=== PATIENT | male | born 1945 | race Caucasian/White ===

== ENCOUNTER 2016-02-21 09:48 | Emergency (ER) | payer MEDICARE, BC ==
[2016-02-21 10:02] VITALS: BP 145/73
--- NOTE | 2016-02-21 10:20 | UC ---
Throat Pain/Nasal Jose HPI - HPI Summary HPI Summary: complaint of nasal congestio and cough hat started 2 days ago headache feels congested denies sore throat, ear pain, shortness of breath denies fever and chills tried some nasal spray flonase with some relief - History of Current Complaint Chief Complaint: UCGeneralIllness Stated Complaint: SINUS ISSUE Time Seen by Provider: 02/21/16 10:11 Hx Obtained From: Patient Cough: Productive Associated Signs & Symptoms: Positive: Nasal Discharge - Allergies/Home Medications Allergies/Adverse Reactions: Allergies Allergy/AdvReac Type Severity Reaction Status Date / Time Penicillins Allergy Hives Verified 02/21/16 09:54 PMH/Surg Hx/FS Hx/Imm Hx Previously Healthy: Yes Endocrine History Of: Denies: Diabetes, Thyroid Disease Cardiovascular History Of: Denies: Cardiac Disorders, Hypertension Respiratory History Of: Reports: Asthma - child, Bronchitis Denies: COPD GI/ History Of: Denies: Ulcer - Surgical History Surgical History: Yes Surgery Procedure, Year, and Place: arthroscopy both knees last in 2010. Tonsilectomy - Family History Known Family History: Positive: Hypertension - father, Diabetes - father Negative: Cardiac Disease - Social History Occupation: Retired Alcohol Use: Daily Substance Use Type: None Smoking Status (MU): Former Smoker Review of Systems Constitutional: Negative Skin: Negative Eyes: Negative ENT: Nasal Discharge Respiratory: Cough Cardiovascular: Negative Gastrointestinal: Negative Genitourinary: Negative Motor: Negative Neurovascular: Negative Musculoskeletal: Negative Neurological: Negative Psychological: Negative All Other Systems Reviewed And Are Negative: Yes Physical Exam Triage Information Reviewed: Yes Appearance: No Pain Distress, Well-Nourished Vital Signs: Initial Vital Signs Temp 98.2 F 02/21/16 09:56 Pulse 83 02/21/16 09:56 Resp 18 02/21/16 09:56 BP 145/73 02/21/16 09:56 Pulse Ox 100 02/21/16 09:56 Vital Signs Reviewed: Yes Eyes: Positive: Conjunctiva Clear ENT: Positive: Pharynx normal, Nasal congestion, Nasal drainage, TMs normal, Other: - no sinus tenderness Neck: Positive: No Lymphadenopathy Respiratory: Positive: Lungs clear, Normal breath sounds, No respiratory distress Cardiovascular: Positive: RRR, No Murmur, Pulses Normal Abdomen Description: Positive: Nontender, Soft Bowel Sounds: Positive: Present Musculoskeletal: Positive: No Edema Neurological: Positive: Alert Psychological Exam: Normal Skin Exam: Normal Throat Pain/Nasal Course/Dx - Course Course Of Treatment: exam completed. URI no s/s of secondary infection. symptomatic treatment only - Differential Dx/Diagnosis Differential Diagnosis/HQI/PQRI: Pharyngitis, Sinusitis, URI Provider Diagnoses: URI Discharge - Discharge Plan Condition: Stable Disposition: HOME Prescriptions: Pseudoephedrine TAB* [Sudafed TAB*] 60 mg PO BID #20 tab guaiFENesin ER TAB [Mucinex*] 600 mg PO BID #20 tab.er Patient Education Materials: Upper Respiratory Infection (ED) Referrals: Michael Yost MD [Primary Care Provider] - Additional Instructions: VIRAL UPPER RESPIRATORY INFECTION (COMMON COLD) What is Viral Upper Respiratory Infection? Viral upper respiratory infection is the medical term for the common cold. Respiratory infections can be caused by either a virus or bacteria. The common cold is caused by a virus. The virus travels through the air and can be passed easily from one person to another. This is one reason that it is so important to cover your mouth when you cough or sneeze. When you cover your mouth you will get the virus on your hands. If you touch something with that hand the virus is spread to the object you touch. Because of this you should be sure to wash your hands often when you have a cold. Symptoms usually begin 1 to 3 days after the virus takes hold in your body. Other people can catch your cold even before you start to notice symptoms, which is one reason why colds are hard to prevent. Symptoms May Include: Scratchiness or tickling in the throat Sore throat Stuffy nose Generalized aches and pains Coughing or sneezing Feeling tired Treatment Recommendations: Drink plenty of clear, nonalcoholic fluids, such as water, sports drinks, or juice. For example, an average adult should drink 8 ounces every hour, a child 6 to 10 years should drink 4 ounces every hour, and a child under 6 should drink 1 to 2 ounces every hour. You should rest as much as possible. You can use a cool-mist humidifier or steam vaporizer to increase air moisture. This will make it easier to breathe. Remember that a steam vaporizer may contain hot water that can cause severe sandoval. If you smoke, stopsmoke irritates bronchial passages. If you are coughing up mucus, and milk seems to make the sputum thicker, do not eat or drink foods that contain milk. You want to try to cough up mucous whenever possible so that you dont get pneumonia. Do not use cough suppressant medicine without your healthcare providers [place]. You should take all medications prescribed until completely gone, or as instructed. Non-prescription medicine such as acetaminophen (Tylenol) or ibuprofen (Motrin , Advil) may help your aches, pains, and fever. Do not take someone else's medicine, or penicillin tablets that you may have saved. You could cause a more serious problem than you already have. Don't bundle up to sweat out a fever. It only makes your fever worse. If you feel cold, cover up; if you feel warm, dress lightly. Dont use non-prescription medicine with antihistamines for your cold symptoms. They may make your mouth and nose too dry, and can make the mucous you are trying to cough up too thick to cough up easily. Antihistamines are more helpful for hay fever-like symptoms.
== END 2016-02-21 10:47 | disposition home or self-care (01) ==
LOC: UCEAST 09:48
DX: J06.9 Acute upper respiratory infection, unspecified (principal); Z87.891 Personal history of nicotine dependence
CPT/HCPCS: 99212; G0463

== ENCOUNTER 2017-08-27 15:03 | Day surgery (SDC) | payer MEDICARE, BC ==
[2017-08-27] MEDS ORDERED: Ondansetron INJ* 2 MG/ML VIAL ONE (17:50)
[2017-08-27] MEDS ORDERED: Propofol* 10 MG/ML 20 ML BTL IV PUSH ONE (17:50)
[2017-08-27] MEDS ORDERED: Midazolam* 1 MG/ML 5 ML VIAL (5 MG) ONE (17:50)
[2017-08-27] MEDS ORDERED: Lidocaine 2% PF * 5 ML VIAL ONE (17:50)
[2017-08-27] MEDS ORDERED: fentaNYL* 50 MCG/ML 2 ML VIAL (100 MCG VIAL) ONE ×2 (17:50→18:27)
[2017-08-27] MEDS ORDERED: Ketorolac INJ* 30 MG/ML 1 ML VIAL ONE (17:51)
[2017-08-27] MEDS ORDERED: Famotidine IV* 10 MG/ML 2 ML (20 mg) ONE (17:51)
[2017-08-27] MEDS ORDERED: EPHEDrine (Pressors)* 50 MG/ML VIAL ONE (18:08)
[2017-08-27] MEDS ORDERED: Bupivacaine 0.5% PF 10 ML VIAL INJ ONE (18:29)
[2017-08-27] MEDS ORDERED: fentaNYL* 50 MCG/ML 2 ML VIAL (100 MCG VIAL) IV PRN (18:54)
[2017-08-27] MEDS ORDERED: Naloxone* 0.4 MG/ML 1 ML VIAL IV PRN (18:54)
[2017-08-27] MEDS ORDERED: Ondansetron INJ* 2 MG/ML VIAL IV PRN (18:54)
[2017-08-27] MEDS ORDERED: oxyCODONE/Acetamin 5/325 MG* TAB PO PRN (18:54)
[2017-08-27 19:56] VITALS: BP 175/92
--- NOTE | 2017-09-03 12:59 | OP ---
DATE OF OPERATION: 08/27/17 [facility] DATE OF : 49 SURGEON: Lex Chery MD [employer] COACH: GRETA Peng ANESTHESIA: General. PRE-OP DIAGNOSIS: Right palm persistently draining abscess despite prior incision and drainage, soaks and antibiotics, possible retained foreign body. POST-OP DIAGNOSES: 1. Right palm abscess. 2. Retained wood fragment, right palm. OPERATIVE PROCEDURE: 1. Incision and drainage of right palm abscess. 2. Removal of infected foreign body, right palm. INDICATIONS: Richard is the patient who I saw, who completed a round of oral antibiotics, and then developed a localized area where that was still infected in the right palm. I had performed an I and D and he had had cultures sent. He was placed on Bactrim and then later Flagyl. He continued to have drainage from the wound and he actually came back and saw my partner in the office earlier this week. She changed him to ciprofloxacin. He had had some fevers and she was concerned about a superimposed sinusitis. Two days later, he came back to my office and still had some drainage from that area. It was very tender, so I told him we need to go to the operating room that night and really open things up and clean things out and see why it was still persistently draining and if there was any retained foreign material that needed to come out or what was the cause of the persistent infection as it should have resolved with appropriate soaks and antibiotics previously. He understands the risks of persistent infection, neurovascular injury, stiffness amongst others, and he wanted to proceed. ESTIMATED BLOOD LOSS: 2 mL. COMPLICATIONS: None. FINDINGS: See above and below. DESCRIPTION OF PROCEDURE: Richard was seen in the preoperative holding area. The correct side, site, and procedure were identified. We came back to the operating room where anesthesia was induced. The arm was prepped and draped in the usual fashion with Betadine and a time-out was performed. I began my making a Burner-type incision utilizing his prior I and D site and extending it proximally and distally. Once I made that incision and reflected the flap radially, I was able to see a retained piece of wood in the bed of the wound. I removed this; it had some purulence around it. This was sent off as a specimen for culture. The wound was then copiously irrigated using cysto tubing. I then examined the wound under loupe magnification. I could not find any more foreign material, nothing looked like it was deep, nothing looked it had penetrated the tendon sheath, and so I left this closed and undisturbed. He had no signs of flexor tenosynovitis preoperatively. Again, the wound was irrigated out. The skin was closed with just a couple of 4-0 nylon sutures. Tourniquet was deflated. The finger pinked up immediately. Soft dressings were applied and he was taken to the recovery room in stable condition. [id number]/CPS #: [id number] MTDD
== END 2017-08-27 20:06 | disposition home or self-care (01) ==
LOC: OR 15:03
PROVIDERS: ATTEND Orthopaedic Surgery Hand Surgery
DX: L02.511 Cutaneous abscess of right hand (principal); M79.5 Residual foreign body in soft tissue; J45.909 Unspecified asthma, uncomplicated; E78.5 Hyperlipidemia, unspecified; M19.90 Unspecified osteoarthritis, unspecified site; F32.9 Major depressive disorder, single episode, unspecified; Z87.891 Personal history of nicotine dependence; F10.21 Alcohol dependence, in remission
CPT/HCPCS: 87070; 87073; 87205; 88300; J1885; J2250; J2405; J2704; J3010

== ENCOUNTER 2019-03-24 14:04 | Emergency (ER) | payer MEDICARE, BC ==
--- OUTSIDE RECORDS SUMMARY | 2019-03-24 14:20 | XMS REPORT | Continuity of Care Document ---
:1945 External Reference #:[id number] Author Name Simran De Paz PA-C Address [address] [place] [id number] Care Team Providers Name Role Phone Deonna Hernandez MD - Family Medicine Care Team Information [facility] Attendant Problems Active Problems Provider Date Acute sinusitis Simran De Paz PA-C Onset: 12/22/2017 Polyp of nasal sinus Simran De Paz PA-C Onset: 12/22/2017 Social History Type Date Description Comments Sex Unknown Tobacco Use Start: Unknown Never Smoked Cigarettes Tobacco Use Start: Unknown Never Smoked Cigars Tobacco Use Start: Unknown Never Smoked A Pipe Smoking Status Reviewed: 03/08/19 Never Smoked A Pipe Smokeless Tobacco Never Used Smokeless Tobacco ETOH Use Currently occasionally consumes alcohol Tobacco Use Start: Unknown Patient has never smoked Allergies, Adverse Reactions, Alerts Active Allergies Reaction Severity Comments Date Penicillin 11/25/2007 Avelox GI upset,diarrhea 10/29/2012 Medications Active Medications SIG Qnty Indications Ordering Provider Date Doxycycline Hyclate take 1 pill 2 20tabs J32.8 Wesley Ruvalcaba 03/09/2019 times a dya for MD Chalo 100mg Tablets 10 days Prednisone 4 tabs po every 38tabs J32.8 Wesley Ruvalcaba 03/09/2019 10mg Tablets day x5 d, then 3 MD Chalo tabs po every day x3 d, then 2 tabs po every day x3d, then 1 tab po qd x3d, then off Fluticasone 2 sprays each 16gm Wesley Ruvalcaba 07/30/2018 Propionate nostril daily MD Chalo 50mcg/Act Suspension Lovastatin Omid Yost 20mg Tablets M.D. Immunizations CPT Code Status Date Vaccine Lot # [id number] Given Unknown Influenza Virus Vaccine, 3 Years Of Age And Above, Intramuscular Vital Signs Date Vital Result Comment 03/09/2019 11:01am Body Temperature 97.3 F Weight 203.00 lb Weight 92.081 kg Height 72.01 inches 6'0.01" Height in cm's 182.9 cm BMI (Body Mass Index) 27.5 kg/m2 11/03/2018 9:24am Weight 203.00 lb Weight 92.081 kg Height 72.01 inches 6'0.01" Height in cm's 182.9 cm BMI (Body Mass Index) 27.5 kg/m2 Results Description No Information Available Procedures Date Code Description Status 11/03/2018 85731 Removal Wax Impaction Completed Medical Devices Description No Information Available Encounters Type Date Location Provider Dx Diagnosis Office Visit 03/09/2019 Sen De Paz J33.1 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[facility] degeneration J30.9 Allergic rhinitis, unspecified J32.8 Other chronic sinusitis [facility] Ruvalc[facility] J33.1 Polypoid sinus 9:30a 02/17/07 MD Chalo degeneration H61.23 Impacted cerumen, bilateral J30.9 Allergic rhinitis, unspecified Assessments Date Code Description Provider 03/09/2019 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 Simran De Paz PA-C 03/09/2019 J30.9 Allergic rhinitis, unspecified Simran De Paz PA-C 03/09/2019 J32.8 Other chronic sinusitis Simran De Paz PA-C 11/03/2018 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 Wesley Isabel MD 11/03/2018 H61.23 Impacted cerumen, bilateral Wesley Isabel MD 11/03/2018 J30.9 Allergic rhinitis, unspecified Wesley Isabel MD Plan of Treatment 03/09/2019 - BISHNU LeeCJ33.1 Polypoid sinus qjhejvnsemqiW02.9 Allergic rhinitis, hwmiiicpnpvH03.8 Other chronic sinusitisNew Medication:Doxycycline Hyclate 100 mg - take 1 pill 2 times a dya for 10 daysPrednisone 10 mg - 4 tabs po every day x5 d, then 3 tabs po every day x3 d, then 2 tabs po every dayx3d, then 1 tab po qd x3d, then off Functional Status Description No Information Available Mental Status Description No Information Available Referrals Description No Information Available
[2019-03-24] MEDS ORDERED: NS 0.9% 1000 ML** 1,000 ML IV ONE (15:59)
--- NOTE | 2019-03-24 16:00 | ED ---
Respiratory - HPI Summary HPI Summary: 73 year old M presenting to [facility] accompanied by female says he was sent here after being diagnosed with bilateral PNA at [facility] with a CXR. Pt previously had a sinus infection for which had completed an abx treatment for and developed a productive cough 2 days after the infection resolved for which he went to [facility] for. Pt denies current SOB. No PMHx of HTN, [place], diabetes, swelling in legs, or clots in legs. PMHx of asthma in youth. Pt used prednisone and doxycycline for the sinus infection and is allergic to penicillin. The patient rates the pain 0/10 in severity. Symptoms aggravated by nothing. Symptoms alleviated by nothing. - History of Current Complaint Chief Complaint: EDShortnessOfBreath Stated Complaint: SOB PER PT Time Seen by Provider: 03/24/19 15:43 Hx Obtained From: Patient Onset/Duration: Lasting Hours Pain Intensity: 0 Character: Cough (Productive) Aggravating Factor(s): Nothing Alleviating Factor(s): Nothing Associated Signs and Symptoms: Negative - negative - SOB - Allergy/Home Medications Allergies/Adverse Reactions: Allergies Allergy/AdvReac Type Severity Reaction Status Date / Time Penicillins Allergy Difficulty Verified 03/24/19 14:13 Breathing/Wheezing PMH/Surg Hx/FS Hx/Imm Hx Endocrine/Hematology History: Denies: Hx Diabetes, Hx Thyroid Disease Cardiovascular History: Denies: Hx Hypertension Respiratory History: Reports: Hx Asthma - child, Other Respiratory Problems/ Disorders - pneumonia, see above Denies: Hx Chronic Obstructive Pulmonary Disease (COPD) GI History: Denies: Hx Ulcer - Surgical History Surgery Procedure, Year, and Place: arthroscopy both knees last in 2010. Tonsilectomy Infectious Disease History: No Infectious Disease History: Reports: Hx Shingles - as a young man Denies: Hx Clostridium Difficile, Hx Hepatitis, Hx Human Immunodeficiency Virus (HIV), Hx of Known/Suspected MRSA, Hx Tuberculosis, Traveled Outside the [place] in Last 30 Days - Family History Known Family History: Positive: Hypertension - father, Diabetes - father Negative: Cardiac Disease - Social History Alcohol Use: Rare Substance Use Type: Reports: None Smoking Status (MU): Never Smoked Tobacco Review of Systems Negative: Fever Positive: Cough - productive. Negative: Shortness Of Breath All Other Systems Reviewed And Are Negative: Yes Physical Exam - Summary Physical Exam Summary: Constitutional: Well-developed, Well-nourished, Alert. (-) Distressed Skin: Warm, Dry HENT: Normocephalic; Atraumatic Eyes: Conjunctiva normal Neck: Musculoskeletal ROM normal neck. (-) JVD, (-) Stridor, (-) Tracheal deviation Cardio: Rhythm regular, rate normal, Heart sounds normal; Intact distal pulses; The pedal pulses are 2+ and symmetric. Radial pulses are 2+ and symmetric. (-) Murmur Pulmonary/Chest wall: Effort normal. (-) Respiratory distress, (-) Wheezes, (-) Rales Abd: Soft, (-) tenderness, (-) Distension, (-) Guarding, (-) Rebound Musculoskeletal: (-) Edema Lymph: (-) Cervical adenopathy Neuro: Alert, Oriented x3 Psych: Mood and affect Normal Triage Information Reviewed: Yes Vital Signs On Initial Exam: Initial Vitals Temp Pulse Resp BP Pulse Ox 97.1 F 71 19 177/93 98 03/24/19 14:09 03/24/19 14:09 03/24/19 14:09 03/24/19 14:09 03/24/19 14:09 Vital Signs Reviewed: Yes Procedures - Sedation Patient Received Moderate/Deep Sedation with Procedure: No Diagnostics - Vital Signs Vital Signs Temp Pulse Resp BP Pulse Ox 03/24/19 14:09 97.1 F 71 19 177/93 98 - Laboratory Result Diagrams: 03/24/19 16:11 03/24/19 16:11 Lab Statement: Any lab studies that have been ordered have been reviewed, and results considered in the medical decision making process. - Radiology CXR Radiology Interpretation Completed By: Radiologist Summary of Radiographic Findings: IMPRESSION: COARSE INTERSTITIAL OPACIFICATION IN THE PERIPHERY OF THE LUNGS SUGGESTIVE OF. PULMONARY FIBROTIC LUNG DISEASE. NO CONSOLIDATION. has reviewed this report. - EKG 1702 Cardiac Rate: NL EKG Rhythm: Sinus Rhythm Summary of EKG Findings: EKG at 1702 reveals sinus rhythm at a rate of 72 bpm. No ischemic changes. has reviewed and interpreted this EKG. Disposition - Course Course Of Treatment: 73 year old M presenting to [facility] says he was sent here after being diagnosed with bilateral PNA at [facility] with a CXR. Pt previously had a sinus infection for which had completed an abx treatment for and developed a productive cough 2 days after the infection resolved for which he went to [facility] for. Physical exam findings: nml. Bloodwork results with no significant abnormalities except for L RBC, L Hgb, L Hct, H MCV, H MCH, H Absolute Monos. EKG at 1702 reveals sinus rhythm at a rate of 72 bpm. No ischemic changes. CXR shows COARSE INTERSTITIAL OPACIFICATION IN THE PERIPHERY OF THE LUNGS SUGGESTIVE OF PULMONARY FIBROTIC LUNG DISEASE. NO CONSOLIDATION, per radiologist. In the ED course, the patient was given 500 mg in 250 ml IVPB Azithromycin, Ns, Ns 0.9% 50 ml Ceftriaxone. Patient will be discharged home and was told to follow up with PCP in 2-3 days. Patient was instructed to return to Emergency Department for new or worsening symptoms. Patient understands and is agreeable to this plan. - Diagnoses Provider Diagnoses: Bronchitis Discharge ED - Sign-Out/Discharge Documenting (check all that apply): Patient Departure - discharge - Discharge Plan Condition: Stable Disposition: HOME Patient Education Materials: Acute Bronchitis (ED) Referrals: Deonna Hernandez MD [Primary Care Provider] - 2 Days Additional Instructions: Follow up with your primary care provider in 2-3 days. Return to the Emergency Department for new or worsening symptoms. - Billing Disposition and Condition Condition: STABLE Disposition: Home - Attestation Statements Document Initiated by Theodora: Yes Documenting Scribe: Gerson Garcia Provider For Whom Theodora is Documenting (Include Credential): Antoine Lockwood DO Scribe Attestation: Gerson Shaw scribed for Antoine Lockwood DO on 03/24/19 at 1903. Scribe Documentation Reviewed: Yes Provider Attestation: The documentation as recorded by the Gerson chen accurately reflects the service I personally performed and the decisions made by , Antoine Lockwood DO Status of Scribe Document: Viewed
[2019-03-24] MEDS ORDERED: Azithromycin 500 mg/250 ml NS 500 MG/250 ML BAG IVPB ONE (16:05)
[2019-03-24] MEDS ORDERED: cefTRIAXone(*) 1 GM in NS 0.9% 50 ML* 50 ML IVPB ONE (16:05)
[2019-03-24 16:34] LABS: ABS Basophils 0.1 10^3/ul (0-0.2); ABS Eosinophils 0.3 10^3/ul (0-0.6); ABS Lymphocytes 1.2 10^3/ul (1.0-4.8); ABS Monocytes 1.1 10^3/ul (0-0.8); ABS Neutrophils 5.9 10^3/ul (1.5-7.7); Eosinophil % 2.9 %; Hematocrit 35 % (42-52); Hemoglobin 12.1 g/dL (14.0-18.0); Lymphocyte % 14.4 %; Mean Corpuscular HGB Conc 35 g/dL (31-36); Mean Corpuscular Hemoglobin 37 pg (27-31); Mean Corpuscular Volume 105 fL (80-94); Mean Platelet Volume 9.8 fL (7.4-10.4); Nucleated Red Blood Cells % 0.1; Platelet Count 240 10^3/uL (150-450); Red Blood Count 3.31 10^6 /uL (4.18-5.48); Red Cell Distribution Width 13 % (10-15); White Blood Count 8.6 10^3/uL (3.5-10.8)
[2019-03-24 17:10] LABS: Albumin 4.1 g/dL (3.2-5.2); Albumin/Globulin Ratio 1.3 (1-3); BUN/Creatinine Ratio 15.8 (8-20); Calcium 9.2 mg/dL (8.6-10.3); EGFR African American 94.6 (>60); EGFR Non-African American 78.2 (>60); Globulin 3.1 g/dL (2-4); Potassium 4.3 mmol/L (3.5-5.0); Total Bilirubin 0.9 mg/dL (0.2-1.0); Total Protein 7.2 g/dL (6.4-8.9)
[2019-03-24 17:20] LABS: Troponin I 0.01 ng/mL (<0.03)
[2019-03-24 18:58] VITALS: BP 152/92
== END 2019-03-24 18:57 | disposition home or self-care (01) ==
LOC: ED 14:04
DX: J40 Bronchitis, not specified as acute or chronic (principal); Z88.0 Allergy status to penicillin
CPT/HCPCS: 36415; 71045; 80053; 84484; 85025; 85379; 93005; 96374; 96375; 99283; J0456; J0696

== ENCOUNTER 2019-12-31 11:30 | Observation (INO) ==
[~2019-12-31 11:30] MED LIST: Buffered Lidocaine 1% SYRIN 1 ml INTRADERM ONE; Famotidine IV 10 MG/ML 2 ml VIAL (20 mg) IV ONE; Lactated Ringers 1000 ml BAG 1,000 ML IV SCH; Sodium Citrate/Citric Acid LIQ 15 ML UDC PO ONE
[2019-12-31] MEDS ORDERED: Dexamethasone IV 4 MG/ML VIAL 1 ml VIAL ONE ×2 (11:52→13:24)
[2019-12-31] MEDS ORDERED: Propofol 10 MG/ML 20 ML BTL ONE (11:52)
[2019-12-31] MEDS ORDERED: Ondansetron 4 mg VIAL 2 MG/ML 2 ml VIAL ONE (11:52)
[2019-12-31] MEDS ORDERED: Sodium Citrate/Citric Acid LIQ 15 ML UDC ONE (12:47)
[2019-12-31] MEDS ORDERED: Buffered Lidocaine 1% SYRIN 1 ml INTRADERM ONE (12:48)
[2019-12-31] MEDS ORDERED: Clindamycin 900 MG/D5W BAG 900 MG/50 ML BAG IVPB ONE (12:48)
[2019-12-31] MEDS ORDERED: Famotidine IV 10 MG/ML 2 ml VIAL (20 mg) ONE (12:49)
[2019-12-31] MEDS ORDERED: Midazolam 5 mg/5 ml VIAL 1 mg/ml 5 ml VIAL (5 mg) ONE (13:06)
[2019-12-31] MEDS ORDERED: Lidocaine 1% MPF 5 ML VIAL ONE (13:28)
[2019-12-31] MEDS ORDERED: ROPIVACAINE 5 MG/ML 30 ML BTL (0.5%) ONE (13:28)
[2019-12-31] MEDS ORDERED: Phenylephrine 40 mcg/mL 10mL (400mcg) SYRINGE ONE (13:43)
[2019-12-31] MEDS ORDERED: Bupivacaine 0.5% SDV PF 30ML VIAL ONE (14:13)
[2019-12-31] MEDS ORDERED: Lidocaine 2% PF 5 ML VIAL ONE (14:40)
[2019-12-31] MEDS ORDERED: Phenylephrine IV 10 MG/ML 1 ml VIAL ONE (15:12)
[2019-12-31] MEDS ORDERED: Morphine 2 MG/ML SYRINGE IV PRN (15:15)
[2019-12-31] MEDS ORDERED: Ondansetron ODT 4 mg TAB 4 MG TAB PO PRN (15:15)
[2019-12-31] MEDS ORDERED: diPHENhydraMINE IV 50 MG/ML 1 ml VIAL (BENADRYL) IV PRN (15:15)
[2019-12-31] MEDS ORDERED: Lactulose 30 ml UDC PO PRN (15:15)
[2019-12-31] MEDS ORDERED: Ondansetron 4 mg VIAL 2 MG/ML 2 ml VIAL IV PRN ×2 (15:15→15:20)
[2019-12-31] MEDS ORDERED: Magnesium Hydroxide LIQ 30 ML UDC PO PRN (15:15)
[2019-12-31] MEDS ORDERED: diPHENhydraMINE 25 mg TAB PO PRN (15:15)
[2019-12-31] MEDS ORDERED: fentaNYL 100 mcg/2 ml 50 MCG/ML VIAL IV PRN (15:20)
[2019-12-31] MEDS ORDERED: HYDROmorphone 1 MG/1 ML SYRINGE IV PRN (15:20)
[2019-12-31] MEDS ORDERED: Naloxone 0.4 mg VIAL 0.4 mg/ml 1 ml VIAL IV PRN (15:20)
[2019-12-31] MEDS ORDERED: Fluticasone NASAL SPRAY 50MCG 16 gm SPRAY BTL INTRANASAL PRN (15:21)
[2019-12-31] MEDS ORDERED: Albuterol HFA INHALER 8 gm MDI INH PRN (19:52)
[2019-12-31] MEDS: Lactated Ringers 1000 ml BAG 1,000 ML IV SCH (19:57)
[2019-12-31] MEDS: Clindamycin 600 MG/D5W BAG 600 MG/50 ML BAG IV SCH (22:41)
[2019-12-31] MEDS: Magnesium Hydroxide LIQ 30 ML UDC PO SCH (22:41)
[2020-01-01 05:47] LABS: Hematocrit 28 % (42-52); Hemoglobin 9.9 g/dL (14.0-18.0); Mean Platelet Volume 10.2 fL (7.4-10.4); Platelet Count 217 10^3/uL (150-450)
[2020-01-01] MEDS: Clindamycin 600 MG/D5W BAG 600 MG/50 ML BAG IV SCH ×2 (06:03→14:18)
[2020-01-01 06:04] LABS: Calcium 8.4 mg/dL (8.6-10.3); EGFR Non-African American 85.1 (>60); Potassium 4.6 mmol/L (3.5-5.0)
[2020-01-01] MEDS: Lactated Ringers 1000 ml BAG 1,000 ML IV SCH (06:06)
[2020-01-01] MEDS: oxyCODONE/Acetamin 5/325 mg TAB PO PRN ×2 (06:07→15:22)
[2020-01-01] MEDS: Magnesium Hydroxide LIQ 30 ML UDC PO SCH (07:46)
[2020-01-01] MEDS ORDERED: Vitamin THERAPEUTIC TAB PO SCH (09:00)
[2020-01-01 12:33] VITALS: BP 115/57
== END 2020-01-01 15:31 | disposition home or self-care (01) ==
LOC: INTOOBSV 12:27 → AA 12:27 → SSU 15:15
PROVIDERS: ADMIT Orthopaedic Surgery Adult Reconstructive Orthopaedic Surgery; ATTEND Orthopaedic Surgery Adult Reconstructive Orthopaedic Surgery

== ENCOUNTER 2020-02-24 10:11 | Inpatient (IN) ==
[2020-02-24 12:45] LABS: ABS Lymphocytes 0.9 10^3/ul (1.0-4.8); ABS Neutrophils 6.2 10^3/ul (1.5-7.7); Eosinophil % 0.3 %; Hematocrit 23 % (42-52); Hemoglobin 7.5 g/dL (14.0-18.0); Lymphocyte % 10.7 %; Mean Corpuscular HGB Conc 33 g/dL (31-36); Mean Corpuscular Hemoglobin 29 pg (27-31); Mean Corpuscular Volume 89 fL (80-94); Mean Platelet Volume 7.4 fL (7.4-10.4); Nucleated Red Blood Cells % 0.1; Platelet Count 371 10^3/uL (150-450); Red Cell Distribution Width 24 % (10-15); White Blood Count 8.1 10^3/uL (3.5-10.8)
[2020-02-24] MEDS ORDERED: Vancomycin 1,500 MG in NS 0.9% 250 ml 250 ML IVPB ONE (12:47)
[2020-02-24 12:55] LABS: Activated Partial Thrombo Time 35.7 seconds (26.0-38.0); INR 1.31 (0.82-1.09)
[2020-02-24 12:56] LABS: Albumin 3.4 g/dL (3.2-5.2); BUN/Creatinine Ratio 18.4 (8-20); Calcium 8.7 mg/dL (8.6-10.3); EGFR Non-African American 100.8 (>60); Globulin 4.4 g/dL (2-4); Potassium 4.3 mmol/L (3.5-5.0); Total Protein 7.8 g/dL (6.4-8.9)
[2020-02-24 12:57] LABS: Albumin/Globulin Ratio 0.8 (1-3); C Reactive Protein 128.14 mg/L (<8.01); Total Bilirubin 0.5 mg/dL (0.2-1.0)
[2020-02-24 12:58] LABS: Troponin I 0.01 ng/mL (<0.03)
[2020-02-24] MEDS ORDERED: NS 0.9% 250 ml 250 ML ONE (13:18)
[2020-02-24] MEDS ORDERED: NS 0.9% w/ 40 Meq KCL 1000 ML 1,000 ML IV SCH (14:00)
[2020-02-24] MEDS ORDERED: Ondansetron 4 mg VIAL 2 MG/ML 2 ml VIAL IV PRN (14:13)
[2020-02-24] MEDS ORDERED: Vancomycin per Pharmacy 1 EA NOTE FOLLOW UP SCH (15:00)
[2020-02-24] MEDS ORDERED: Albuterol HFA INHALER 8 gm MDI INH PRN (16:38)
[2020-02-24] MEDS: NS 0.9% 1000 ml BAG 1,000 ML IV SCH (17:22)
[2020-02-24 17:39] LABS: Urine Appearance Cloudy; Urine Bilirubin Negative (Negative); Urine Blood Negative (Negative); Urine Color Amber; Urine Glucose Negative (Negative); Urine Ketones Negative (Negative); Urine Nitrite Negative (Negative); Urine Protein 1+(30 mg/dL) (Negative); Urine Specific Gravity 1.026 (1.010-1.030); Urine Urobilinogen Negative (Negative)
[2020-02-24 17:51] LABS: Urine Bacteria Absent (Absent); Urine Red Blood Cell 1+(3-5/hpf) (Absent); Urine Squamous Epithelial Cell Present (Absent); Urine White Blood Cell 3+(>20/hpf) (Absent)
[2020-02-24] MEDS: Latanoprost 0.005% 2.5 ml BTL RIGHT EYE SCH (21:01)
[2020-02-24] MEDS: Vancomycin 1000 MG in NS 0.9% 250 ML IVPB SCH (22:29)
[2020-02-25] MEDS: Vancomycin 1000 MG in NS 0.9% 250 ML IVPB SCH ×3 (05:21→21:42)
[2020-02-25] MEDS: NS 0.9% 1000 ml BAG 1,000 ML IV SCH ×2 (05:21→12:57)
[2020-02-25 06:24] LABS: ABS Basophils 0.1 10^3/ul (0-0.2); ABS Eosinophils 0.1 10^3/ul (0-0.6); ABS Lymphocytes 1.1 10^3/ul (1.0-4.8); ABS Monocytes 0.8 10^3/ul (0-0.8); ABS Neutrophils 4.1 10^3/ul (1.5-7.7); Eosinophil % 1.6 %; Hematocrit 21 % (42-52); Hemoglobin 6.8 g/dL (14.0-18.0); Lymphocyte % 17.4 %; Mean Corpuscular HGB Conc 33 g/dL (31-36); Mean Corpuscular Hemoglobin 29 pg (27-31); Mean Corpuscular Volume 88 fL (80-94); Nucleated Red Blood Cells % 0.1; Platelet Count 358 10^3/uL (150-450); Red Blood Count 2.37 10^6 /uL (4.18-5.48); Red Cell Distribution Width 24 % (10-15); White Blood Count 6.1 10^3/uL (3.5-10.8)
[2020-02-25 06:39] LABS: BUN/Creatinine Ratio 15.2 (8-20); C Reactive Protein 118.63 mg/L (<8.01); Calcium 8.5 mg/dL (8.6-10.3); EGFR African American 143.6 (>60); EGFR Non-African American 118.6 (>60); Potassium 3.8 mmol/L (3.5-5.0)
[2020-02-25] MEDS: Pantoprazole VIAL 40 MG VIAL IV SCH ×2 (08:03→20:39)
[2020-02-25 15:05] LABS: ABS Eosinophils 0.1 10^3/ul (0-0.6); ABS Lymphocytes 1.4 10^3/ul (1.0-4.8); ABS Monocytes 0.9 10^3/ul (0-0.8); ABS Neutrophils 3.8 10^3/ul (1.5-7.7); Eosinophil % 1.4 %; Hematocrit 25 % (42-52); Hemoglobin 8.3 g/dL (14.0-18.0); Mean Corpuscular HGB Conc 33 g/dL (31-36); Mean Corpuscular Hemoglobin 29 pg (27-31); Mean Corpuscular Volume 89 fL (80-94); Mean Platelet Volume 7.9 fL (7.4-10.4); Nucleated Red Blood Cells % 0.1; Platelet Count 380 10^3/uL (150-450); Red Blood Count 2.87 10^6 /uL (4.18-5.48); Red Cell Distribution Width 23 % (10-15); White Blood Count 6.3 10^3/uL (3.5-10.8)
[2020-02-25] MEDS ORDERED: ROPIVACAINE 5 MG/ML 30 ML BTL (0.5%) ONE (15:24)
[2020-02-25] MEDS ORDERED: Bacitracin INJECTION 50,000 UNITS ONE (15:24)
[2020-02-25 15:59] LABS: EGFR African American 148.7 (>60); EGFR Non-African American 122.9 (>60)
[2020-02-25] MEDS ORDERED: Naloxone 0.4 mg VIAL 0.4 mg/ml 1 ml VIAL IV PRN (17:16)
[2020-02-25] MEDS ORDERED: fentaNYL 100 mcg/2 ml 50 MCG/ML VIAL IV PRN (17:16)
[2020-02-25] MEDS ORDERED: DiMENhydriNATE IV 50 mg/ml 1 ml VIAL IV PUSH PRN (17:16)
[2020-02-25] MEDS: Latanoprost 0.005% 2.5 ml BTL RIGHT EYE SCH (20:40)
[2020-02-26] MEDS: NS 0.9% 1000 ml BAG 1,000 ML IV SCH ×2 (04:01→17:59)
[2020-02-26] MEDS ORDERED: Vancomycin Trough Check NOTE FOLLOW UP ONE (05:30)
[2020-02-26 06:30] LABS: ABS Basophils 0.1 10^3/ul (0-0.2); ABS Eosinophils 0.1 10^3/ul (0-0.6); ABS Monocytes 0.8 10^3/ul (0-0.8); ABS Neutrophils 5.1 10^3/ul (1.5-7.7); Eosinophil % 2.1 %; Hematocrit 23 % (42-52); Hemoglobin 7.2 g/dL (14.0-18.0); Lymphocyte % 13.7 %; Mean Corpuscular HGB Conc 32 g/dL (31-36); Mean Corpuscular Hemoglobin 29 pg (27-31); Mean Corpuscular Volume 90 fL (80-94); Mean Platelet Volume 7.9 fL (7.4-10.4); Platelet Count 327 10^3/uL (150-450); Red Cell Distribution Width 23 % (10-15)
[2020-02-26 06:39] LABS: BUN/Creatinine Ratio 12.7 (8-20); Calcium 8.5 mg/dL (8.6-10.3); EGFR Non-African American 109.1 (>60); Potassium 3.8 mmol/L (3.5-5.0)
[2020-02-26] MEDS: Vancomycin 1000 MG in NS 0.9% 250 ML IVPB SCH ×3 (07:16→22:30)
[2020-02-26] MEDS: Pantoprazole VIAL 40 MG VIAL IV SCH ×2 (08:30→22:04)
[2020-02-26 15:02] LABS: Hematocrit 21 % (42-52); Hemoglobin 6.8 g/dL (14.0-18.0); Mean Corpuscular HGB Conc 33 g/dL (31-36); Mean Corpuscular Hemoglobin 29 pg (27-31); Mean Corpuscular Volume 88 fL (80-94); Mean Platelet Volume 7.5 fL (7.4-10.4); Platelet Count 318 10^3/uL (150-450); Red Blood Count 2.34 10^6 /uL (4.18-5.48); Red Cell Distribution Width 23 % (10-15); White Blood Count 7.9 10^3/uL (3.5-10.8)
[2020-02-26] MEDS: Latanoprost 0.005% 2.5 ml BTL RIGHT EYE SCH (21:22)
[2020-02-27 03:36] LABS: Hematocrit 24 % (42-52)
[2020-02-27 03:55] LABS: BUN/Creatinine Ratio 14.3 (8-20); Calcium 8.3 mg/dL (8.6-10.3); EGFR African American 151.5 (>60); EGFR Non-African American 125.2 (>60); Potassium 3.8 mmol/L (3.5-5.0)
[2020-02-27] MEDS: Vancomycin 1000 MG in NS 0.9% 250 ML IVPB SCH ×3 (05:56→20:38)
[2020-02-27 08:53] LABS: ABS Basophils 0.1 10^3/ul (0-0.2); ABS Eosinophils 0.1 10^3/ul (0-0.6); ABS Monocytes 1.1 10^3/ul (0-0.8); ABS Neutrophils 6.5 10^3/ul (1.5-7.7); Eosinophil % 1.5 %; Hematocrit 25 % (42-52); Hemoglobin 8.4 g/dL (14.0-18.0); Lymphocyte % 11.9 %; Mean Corpuscular HGB Conc 33 g/dL (31-36); Mean Corpuscular Hemoglobin 29 pg (27-31); Mean Corpuscular Volume 87 fL (80-94); Mean Platelet Volume 7.6 fL (7.4-10.4); Platelet Count 301 10^3/uL (150-450); Red Blood Count 2.89 10^6 /uL (4.18-5.48); Red Cell Distribution Width 20 % (10-15); White Blood Count 8.8 10^3/uL (3.5-10.8)
[2020-02-27] MEDS: Pantoprazole VIAL 40 MG VIAL IV SCH ×2 (11:01→20:38)
[2020-02-27] MEDS: NS 0.9% 1000 ml BAG 1,000 ML IV SCH (13:49)
[2020-02-27] MEDS: Latanoprost 0.005% 2.5 ml BTL RIGHT EYE SCH (20:39)
[2020-02-28] MEDS ORDERED: Vancomycin Trough Check NOTE FOLLOW UP ONE (06:00)
[2020-02-28 08:33] LABS: EGFR African American 143.6 (>60); EGFR Non-African American 118.6 (>60)
[2020-02-28 09:06] LABS: Vancomycin Trough 13.2 mcg/mL
[2020-02-28] MEDS: Vancomycin 1000 MG in NS 0.9% 250 ML IVPB SCH ×3 (09:30→22:02)
[2020-02-28] MEDS: Pantoprazole VIAL 40 MG VIAL IV SCH ×2 (09:30→22:00)
[2020-02-28] MEDS ORDERED: fentaNYL 100 mcg/2 ml 50 MCG/ML VIAL ONE (09:41)
[2020-02-28] MEDS ORDERED: Midazolam 10 mg/10 ml VIAL 1 mg/ml 10 ml VIAL (10 mg) ONE (09:41)
[2020-02-28 09:48] LABS: ABS Eosinophils 0.1 10^3/ul (0-0.6); ABS Lymphocytes 0.9 10^3/ul (1.0-4.8); ABS Monocytes 0.8 10^3/ul (0-0.8); ABS Neutrophils 5.1 10^3/ul (1.5-7.7); Eosinophil % 1.5 %; Hematocrit 24 % (42-52); Hemoglobin 8.1 g/dL (14.0-18.0); Lymphocyte % 13.3 %; Mean Corpuscular HGB Conc 33 g/dL (31-36); Mean Corpuscular Hemoglobin 30 pg (27-31); Mean Corpuscular Volume 89 fL (80-94); Mean Platelet Volume 7.8 fL (7.4-10.4); Nucleated Red Blood Cells % 0.1; Platelet Count 292 10^3/uL (150-450); Red Blood Count 2.73 10^6 /uL (4.18-5.48); Red Cell Distribution Width 21 % (10-15)
[2020-02-28] MEDS: Latanoprost 0.005% 2.5 ml BTL RIGHT EYE SCH (21:59)
[2020-02-29] MEDS ORDERED: Vancomycin Trough Check NOTE FOLLOW UP ONE (05:30)
[2020-02-29 06:41] LABS: ABS Basophils 0.1 10^3/ul (0-0.2); ABS Eosinophils 0.2 10^3/ul (0-0.6); ABS Monocytes 0.8 10^3/ul (0-0.8); ABS Neutrophils 4.1 10^3/ul (1.5-7.7); Eosinophil % 3.8 %; Hematocrit 24 % (42-52); Hemoglobin 8.2 g/dL (14.0-18.0); Lymphocyte % 16.7 %; Mean Corpuscular HGB Conc 34 g/dL (31-36); Mean Corpuscular Hemoglobin 30 pg (27-31); Mean Corpuscular Volume 89 fL (80-94); Mean Platelet Volume 7.9 fL (7.4-10.4); Platelet Count 299 10^3/uL (150-450); Red Blood Count 2.75 10^6 /uL (4.18-5.48); Red Cell Distribution Width 21 % (10-15); White Blood Count 6.3 10^3/uL (3.5-10.8)
[2020-02-29 07:02] LABS: BUN/Creatinine Ratio 14.8 (8-20); C Reactive Protein 91.54 mg/L (<8.01); Calcium 8.4 mg/dL (8.6-10.3); EGFR African American 157.2 (>60); EGFR Non-African American 129.9 (>60); Potassium 4.2 mmol/L (3.5-5.0)
[2020-02-29] MEDS ORDERED: Naloxone 0.4 mg VIAL 0.4 mg/ml 1 ml VIAL ONE (07:52)
[2020-02-29] MEDS ORDERED: Flumazenil 0.5 mg/5 ml 0.1 MG/ML 5 ml VIAL ONE (07:52)
[2020-02-29] MEDS ORDERED: fentaNYL 100 mcg/2 ml 50 MCG/ML VIAL ONE (07:52)
[2020-02-29] MEDS ORDERED: Midazolam 5 mg/5 ml VIAL 1 mg/ml 5 ml VIAL (5 mg) ONE (07:52)
[2020-02-29] MEDS: Pantoprazole VIAL 40 MG VIAL IV SCH ×2 (10:35→21:31)
[2020-02-29] MEDS: Vancomycin 1000 MG in NS 0.9% 250 ML IVPB SCH ×3 (11:01→21:30)
[2020-02-29] MEDS: Latanoprost 0.005% 2.5 ml BTL RIGHT EYE SCH (21:31)
[2020-03-01 05:59] LABS: Hematocrit 25 % (42-52); Hemoglobin 8.2 g/dL (14.0-18.0); Mean Corpuscular HGB Conc 33 g/dL (31-36); Mean Corpuscular Hemoglobin 29 pg (27-31); Mean Corpuscular Volume 88 fL (80-94); Mean Platelet Volume 7.5 fL (7.4-10.4); Platelet Count 311 10^3/uL (150-450); Red Blood Count 2.82 10^6 /uL (4.18-5.48); Red Cell Distribution Width 22 % (10-15); White Blood Count 6.6 10^3/uL (3.5-10.8)
[2020-03-01] MEDS: Vancomycin 1000 MG in NS 0.9% 250 ML IVPB SCH ×3 (07:07→23:18)
[2020-03-01 07:43] LABS: ABS Basophils 0.1 10^3/ul (0-0.2); ABS Eosinophils 0.2 10^3/ul (0-0.6); ABS Lymphocytes 0.9 10^3/ul (1.0-4.8); ABS Monocytes 0.9 10^3/ul (0-0.8); ABS Neutrophils 4.6 10^3/ul (1.5-7.7); Eosinophil % 3.2 %; Lymphocyte % 13.4 %
[2020-03-01] MEDS: Pantoprazole VIAL 40 MG VIAL IV SCH ×2 (09:04→23:10)
[2020-03-01] MEDS: Latanoprost 0.005% 2.5 ml BTL RIGHT EYE SCH (23:10)
[2020-03-02] MEDS: Vancomycin 1000 MG in NS 0.9% 250 ML IVPB SCH ×3 (05:45→20:20)
[2020-03-02 07:20] LABS: ABS Basophils 0.1 10^3/ul (0-0.2); ABS Eosinophils 0.1 10^3/ul (0-0.6); ABS Lymphocytes 0.7 10^3/ul (1.0-4.8); ABS Monocytes 0.8 10^3/ul (0-0.8); ABS Neutrophils 3.4 10^3/ul (1.5-7.7); Eosinophil % 2.2 %; Hematocrit 25 % (42-52); Hemoglobin 8.2 g/dL (14.0-18.0); Lymphocyte % 14.4 %; Mean Corpuscular HGB Conc 33 g/dL (31-36); Mean Corpuscular Hemoglobin 29 pg (27-31); Mean Corpuscular Volume 89 fL (80-94); Mean Platelet Volume 7.8 fL (7.4-10.4); Nucleated Red Blood Cells % 0.1; Platelet Count 297 10^3/uL (150-450); Red Blood Count 2.81 10^6 /uL (4.18-5.48); Red Cell Distribution Width 21 % (10-15); White Blood Count 5.2 10^3/uL (3.5-10.8)
[2020-03-02 07:38] LABS: BUN/Creatinine Ratio 12.9 (8-20); Calcium 8.4 mg/dL (8.6-10.3); EGFR African American 134.1 (>60); EGFR Non-African American 110.9 (>60); Potassium 3.6 mmol/L (3.5-5.0)
[2020-03-02] MEDS: Pantoprazole VIAL 40 MG VIAL IV SCH ×2 (07:50→20:20)
[2020-03-02 08:59] LABS: C Reactive Protein 66.23 mg/L (<8.01)
[2020-03-02 19:19] LABS: Urine Bacteria Absent (Absent); Urine Red Blood Cell Trace(0-2/hpf) (Absent); Urine White Blood Cell Trace(0-5/hpf) (Absent)
[2020-03-02 19:26] LABS: Urine Appearance Clear; Urine Bilirubin Negative (Negative); Urine Blood Negative (Negative); Urine Color Yellow; Urine Glucose Negative (Negative); Urine Ketones Negative (Negative); Urine Nitrite Negative (Negative); Urine Protein Negative (Negative); Urine Specific Gravity 1.013 (1.010-1.030); Urine Urobilinogen Negative (Negative)
[2020-03-02] MEDS: Latanoprost 0.005% 2.5 ml BTL RIGHT EYE SCH (20:20)
[2020-03-03 04:05] LABS: Hematocrit 26 % (42-52); Hemoglobin 8.5 g/dL (14.0-18.0); Mean Corpuscular HGB Conc 33 g/dL (31-36); Mean Corpuscular Hemoglobin 29 pg (27-31); Mean Corpuscular Volume 87 fL (80-94); Mean Platelet Volume 7.3 fL (7.4-10.4); Platelet Count 276 10^3/uL (150-450); Red Blood Count 2.94 10^6 /uL (4.18-5.48); Red Cell Distribution Width 21 % (10-15); White Blood Count 4.4 10^3/uL (3.5-10.8)
[2020-03-03 04:32] LABS: BUN/Creatinine Ratio 15.4 (8-20); Calcium 8.2 mg/dL (8.6-10.3); EGFR African American 118.4 (>60); EGFR Non-African American 97.8 (>60); Potassium 3.8 mmol/L (3.5-5.0)
[2020-03-03 05:18] LABS: ABS Lymphocytes 0.6 10^3/ul (1.0-4.8); ABS Neutrophils 2.8 10^3/ul (1.5-7.7); Eosinophil % 0.6 %; Lymphocyte % 13.2 %; Nucleated Red Blood Cells % 0.1; Platelet Morphology Large
[2020-03-03] MEDS ORDERED: Vancomycin Trough Check NOTE FOLLOW UP ONE (05:30)
[2020-03-03] MEDS: Vancomycin 1000 MG in NS 0.9% 250 ML IVPB SCH ×3 (06:02→22:07)
[2020-03-03] MEDS: Pantoprazole VIAL 40 MG VIAL IV SCH ×2 (07:52→20:11)
[2020-03-03] MEDS ORDERED: Aztreonam 2 GM in NS 0.9% 100 ml BAG 100 ML IV SCH (14:00)
[2020-03-03] MEDS: Aztreonam 2 GM in NS 0.9% 100 ml BAG 100 ML IV SCH (17:53)
[2020-03-03] MEDS: Latanoprost 0.005% 2.5 ml BTL RIGHT EYE SCH (22:07)
[2020-03-04] MEDS: Aztreonam 2 GM in NS 0.9% 100 ml BAG 100 ML IV SCH ×3 (05:15→22:40)
[2020-03-04] MEDS: Vancomycin 1000 MG in NS 0.9% 250 ML IVPB SCH ×2 (06:27→15:43)
[2020-03-04 07:01] LABS: Hematocrit 25 % (42-52); Hemoglobin 8.1 g/dL (14.0-18.0); Mean Corpuscular HGB Conc 33 g/dL (31-36); Mean Corpuscular Hemoglobin 29 pg (27-31); Mean Corpuscular Volume 89 fL (80-94); Mean Platelet Volume 7.6 fL (7.4-10.4); Platelet Count 196 10^3/uL (150-450); Red Blood Count 2.78 10^6 /uL (4.18-5.48); Red Cell Distribution Width 21 % (10-15); White Blood Count 2.5 10^3/uL (3.5-10.8)
[2020-03-04 07:17] LABS: BUN/Creatinine Ratio 16.4 (8-20); Calcium 7.9 mg/dL (8.6-10.3); EGFR African American 127.8 (>60); EGFR Non-African American 105.6 (>60); Potassium 3.7 mmol/L (3.5-5.0)
[2020-03-04 09:09] LABS: Polychromasia 1+
[2020-03-04 09:10] LABS: ABS Lymphocytes 0.5 10^3/ul (1.0-4.8); ABS Monocytes 0.6 10^3/ul (0-0.8); ABS Neutrophils 1.3 10^3/ul (1.5-7.7); Eosinophil % 1.7 %; Lymphocyte % 20.6 %
[2020-03-04] MEDS: Pantoprazole VIAL 40 MG VIAL IV SCH ×2 (09:29→20:13)
[2020-03-04 14:38] LABS: Influenza A Molecular Negative (Negative); Influenza B Molecular Negative (Negative)
[2020-03-04] MEDS ORDERED: NS 0.9% 500 ml BAG 500 ML IV ONE (14:58)
[2020-03-04] MEDS: NS 0.9% 1000 ml BAG 1,000 ML IV SCH (15:43)
[2020-03-04] MEDS: Latanoprost 0.005% 2.5 ml BTL RIGHT EYE SCH (20:13)
[2020-03-05] MEDS: Pantoprazole VIAL 40 MG VIAL IV SCH ×4 (00:05→22:35)
[2020-03-05] MEDS: Vancomycin 1000 MG in NS 0.9% 250 ML IVPB SCH ×3 (01:03→15:38)
[2020-03-05] MEDS: NS 0.9% 1000 ml BAG 1,000 ML IV SCH (04:01)
[2020-03-05] MEDS: Aztreonam 2 GM in NS 0.9% 100 ml BAG 100 ML IV SCH ×3 (05:50→22:35)
[2020-03-05 06:15] LABS: BUN/Creatinine Ratio 13.5 (8-20); EGFR African American 125.8 (>60); Potassium 3.9 mmol/L (3.5-5.0)
[2020-03-05 08:12] LABS: Hematocrit 27 % (42-52); Hemoglobin 8.9 g/dL (14.0-18.0); Mean Corpuscular HGB Conc 33 g/dL (31-36); Mean Corpuscular Hemoglobin 29 pg (27-31); Mean Corpuscular Volume 89 fL (80-94); Mean Platelet Volume 8.7 fL (7.4-10.4); Platelet Count 168 10^3/uL (150-450); Red Blood Count 3.03 10^6 /uL (4.18-5.48); Red Cell Distribution Width 21 % (10-15)
[2020-03-05 08:21] LABS: ABS Eosinophils 0.1 10^3/ul (0-0.6); ABS Lymphocytes 0.6 10^3/ul (1.0-4.8); ABS Monocytes 0.6 10^3/ul (0-0.8); ABS Neutrophils 1.7 10^3/ul (1.5-7.7); Eosinophil % 2.8 %; Lymphocyte % 20.5 %; Nucleated Red Blood Cells % 0.2
[2020-03-05] MEDS: Latanoprost 0.005% 2.5 ml BTL RIGHT EYE SCH (22:34)
[2020-03-06] MEDS: Vancomycin 1000 MG in NS 0.9% 250 ML IVPB SCH ×4 (00:06→23:00)
[2020-03-06] MEDS: NS 0.9% 1000 ml BAG 1,000 ML IV SCH ×2 (04:35→18:35)
[2020-03-06] MEDS: Aztreonam 2 GM in NS 0.9% 100 ml BAG 100 ML IV SCH ×3 (04:35→21:58)
[2020-03-06] MEDS ORDERED: Vancomycin Trough Check NOTE FOLLOW UP ONE (05:30)
[2020-03-06 07:07] LABS: BUN/Creatinine Ratio 13.9 (8-20); EGFR African American 129.8 (>60); EGFR Non-African American 107.3 (>60); Potassium 3.5 mmol/L (3.5-5.0)
[2020-03-06] MEDS: Pantoprazole VIAL 40 MG VIAL IV SCH ×2 (08:32→19:54)
[2020-03-06 08:40] LABS: C Reactive Protein 46.7 mg/L (<8.01)
[2020-03-06] MEDS: Latanoprost 0.005% 2.5 ml BTL RIGHT EYE SCH (19:54)
[2020-03-07] MEDS: Aztreonam 2 GM in NS 0.9% 100 ml BAG 100 ML IV SCH (05:35)
[2020-03-07] MEDS: Vancomycin 1000 MG in NS 0.9% 250 ML IVPB SCH (06:30)
[2020-03-07 07:17] LABS: Hematocrit 25 % (42-52); Hemoglobin 8.1 g/dL (14.0-18.0); Mean Corpuscular HGB Conc 32 g/dL (31-36); Mean Corpuscular Hemoglobin 28 pg (27-31); Mean Corpuscular Volume 88 fL (80-94); Mean Platelet Volume 8.8 fL (7.4-10.4); Platelet Count 111 10^3/uL (150-450); Red Blood Count 2.87 10^6 /uL (4.18-5.48); Red Cell Distribution Width 20 % (10-15); White Blood Count 1.6 10^3/uL (3.5-10.8)
[2020-03-07 07:29] LABS: Calcium 7.8 mg/dL (8.6-10.3); Potassium 3.7 mmol/L (3.5-5.0)
[2020-03-07 07:35] LABS: EGFR African American 157.2 (>60); EGFR Non-African American 129.9 (>60)
[2020-03-07 08:18] LABS: ABS Eosinophils 0.2 10^3/ul (0-0.6); ABS Lymphocytes 0.4 10^3/ul (1.0-4.8); ABS Monocytes 0.2 10^3/ul (0-0.8); ABS Neutrophils 0.8 10^3/ul (1.5-7.7); Eosinophil % 10.5 %; Lymphocyte % 25.2 %; Nucleated Red Blood Cells % 0.1
[2020-03-07] MEDS ORDERED: Polyethylene Glycol 3350 17 GM PACKET PO PRN (08:41)
[2020-03-07] MEDS ORDERED: Magnesium Hydroxide LIQ 30 ML UDC PO PRN (08:41)
[2020-03-07] MEDS: NS 0.9% 1000 ml BAG 1,000 ML IV SCH (10:40)
[2020-03-07] MEDS: Pantoprazole VIAL 40 MG VIAL IV SCH ×2 (11:44→22:37)
[2020-03-07] MEDS ORDERED: Propofol 10 MG/ML 20 ML BTL ONE (15:51)
[2020-03-07] MEDS ORDERED: Lidocaine 2% PF 5 ML VIAL ONE (15:51)
[2020-03-07] MEDS ORDERED: Ondansetron 4 mg VIAL 2 MG/ML 2 ml VIAL ONE (15:51)
[2020-03-07] MEDS ORDERED: Midazolam 2 mg/2 ml VIAL 1 mg/ml 2 ml VIAL (2 mg) ONE (15:52)
[2020-03-07] MEDS ORDERED: fentaNYL 100 mcg/2 ml 50 MCG/ML VIAL ONE ×3 (15:53→21:50)
[2020-03-07] MEDS ORDERED: Bacitracin INJECTION 50,000 UNITS ONE (19:13)
[2020-03-07] MEDS ORDERED: Midazolam 5 mg/5 ml VIAL 1 mg/ml 5 ml VIAL (5 mg) ONE (19:14)
[2020-03-07] MEDS ORDERED: HYDROmorphone 1 MG/1 ML SYRINGE ONE ×2 (19:50→20:29)
[2020-03-07] MEDS ORDERED: ROPIVACAINE 5 MG/ML 30 ML BTL (0.5%) ONE (20:04)
[2020-03-07] MEDS ORDERED: Ondansetron 4 mg VIAL 2 MG/ML 2 ml VIAL IV PRN (21:10)
[2020-03-07] MEDS ORDERED: Naloxone 0.4 mg VIAL 0.4 mg/ml 1 ml VIAL IV PRN (21:10)
[2020-03-07] MEDS ORDERED: HYDROmorphone 1 MG/1 ML SYRINGE IV PRN (21:10)
[2020-03-07] MEDS ORDERED: fentaNYL 100 mcg/2 ml 50 MCG/ML VIAL IV PRN (21:10)
[2020-03-07] MEDS: Linezolid 600 MG IVPREMIX(*) 600 MG/300 ML BAG IVPB SCH (22:37)
[2020-03-07] MEDS: Latanoprost 0.005% 2.5 ml BTL RIGHT EYE SCH (22:37)
[2020-03-08] MEDS ORDERED: Morphine 2 MG/ML SYRINGE IV ONE (03:44)
[2020-03-08 07:59] LABS: BUN/Creatinine Ratio 12.3 (8-20); Calcium 8.3 mg/dL (8.6-10.3); EGFR African American 146.1 (>60); EGFR Non-African American 120.8 (>60); Potassium 4.3 mmol/L (3.5-5.0)
[2020-03-08 08:08] LABS: Hematocrit 25 % (42-52); Hemoglobin 8.2 g/dL (14.0-18.0); Mean Corpuscular HGB Conc 33 g/dL (31-36); Mean Corpuscular Hemoglobin 29 pg (27-31); Mean Corpuscular Volume 87 fL (80-94); Mean Platelet Volume 8.8 fL (7.4-10.4); Platelet Count 121 10^3/uL (150-450); Red Blood Count 2.88 10^6 /uL (4.18-5.48); Red Cell Distribution Width 21 % (10-15); White Blood Count 2.7 10^3/uL (3.5-10.8)
[2020-03-08] MEDS: Linezolid 600 MG IVPREMIX(*) 600 MG/300 ML BAG IVPB SCH ×2 (09:40→20:57)
[2020-03-08] MEDS: Pantoprazole VIAL 40 MG VIAL IV SCH (09:40)
[2020-03-08 10:27] LABS: Microcytosis 1+
[2020-03-08 10:31] LABS: ABS Eosinophils 0.2 10^3/ul (0-0.6); ABS Lymphocytes 0.9 10^3/ul (1.0-4.8); ABS Monocytes 0.5 10^3/ul (0-0.8); ABS Neutrophils 1.1 10^3/ul (1.5-7.7); Eosinophil % 7.7 %; Nucleated Red Blood Cells % 0.2
[2020-03-08] MEDS: Multivitamins ADULT w/MIN LIQ 15 ML UDC PO SCH (20:43)
[2020-03-08] MEDS: Latanoprost 0.005% 2.5 ml BTL RIGHT EYE SCH ×2 (20:48→20:50)
[2020-03-09 05:42] LABS: ABS Eosinophils 0.2 10^3/ul (0-0.6); ABS Lymphocytes 0.9 10^3/ul (1.0-4.8); ABS Monocytes 0.6 10^3/ul (0-0.8); ABS Neutrophils 1.9 10^3/ul (1.5-7.7); Eosinophil % 5.3 %; Hematocrit 24 % (42-52); Hemoglobin 7.8 g/dL (14.0-18.0); Lymphocyte % 24.3 %; Mean Corpuscular HGB Conc 32 g/dL (31-36); Mean Corpuscular Hemoglobin 28 pg (27-31); Mean Corpuscular Volume 87 fL (80-94); Mean Platelet Volume 8.4 fL (7.4-10.4); Nucleated Red Blood Cells % 0.1; Platelet Count 144 10^3/uL (150-450); Red Blood Count 2.78 10^6 /uL (4.18-5.48); Red Cell Distribution Width 20 % (10-15); White Blood Count 3.6 10^3/uL (3.5-10.8)
[2020-03-09 05:58] LABS: BUN/Creatinine Ratio 9.8 (8-20); Calcium 8.4 mg/dL (8.6-10.3); EGFR African American 157.2 (>60); EGFR Non-African American 129.9 (>60); Potassium 3.8 mmol/L (3.5-5.0)
[2020-03-09 06:00] LABS: EGFR African American 166.6 (>60); EGFR Non-African American 137.7 (>60)
[2020-03-09] MEDS: Linezolid 600 MG IVPREMIX(*) 600 MG/300 ML BAG IVPB SCH ×2 (10:16→20:30)
[2020-03-09] MEDS: Multivitamins ADULT w/MIN LIQ 15 ML UDC PO SCH (10:27)
[2020-03-09] MEDS: Latanoprost 0.005% 2.5 ml BTL RIGHT EYE SCH (20:27)
[2020-03-10 05:24] LABS: ABS Eosinophils 0.2 10^3/ul (0-0.6); ABS Lymphocytes 0.9 10^3/ul (1.0-4.8); ABS Monocytes 0.7 10^3/ul (0-0.8); ABS Neutrophils 1.9 10^3/ul (1.5-7.7); Eosinophil % 6.5 %; Hematocrit 23 % (42-52); Hemoglobin 7.4 g/dL (14.0-18.0); Mean Corpuscular HGB Conc 32 g/dL (31-36); Mean Corpuscular Hemoglobin 28 pg (27-31); Mean Corpuscular Volume 87 fL (80-94); Mean Platelet Volume 8.8 fL (7.4-10.4); Platelet Count 165 10^3/uL (150-450); Red Blood Count 2.63 10^6 /uL (4.18-5.48); Red Cell Distribution Width 21 % (10-15); White Blood Count 3.8 10^3/uL (3.5-10.8)
[2020-03-10] MEDS: Linezolid 600 MG IVPREMIX(*) 600 MG/300 ML BAG IVPB SCH ×2 (08:12→20:39)
[2020-03-10] MEDS: Multivitamins ADULT w/MIN LIQ 15 ML UDC PO SCH (08:12)
[2020-03-10] MEDS: Latanoprost 0.005% 2.5 ml BTL RIGHT EYE SCH (20:39)
[2020-03-11] MEDS: Linezolid 600 MG IVPREMIX(*) 600 MG/300 ML BAG IVPB SCH ×2 (09:13→21:09)
[2020-03-11] MEDS: Multivitamins ADULT w/MIN LIQ 15 ML UDC PO SCH (09:13)
[2020-03-11] MEDS: Latanoprost 0.005% 2.5 ml BTL RIGHT EYE SCH (21:10)
[2020-03-12] MEDS: Multivitamins ADULT w/MIN LIQ 15 ML UDC PO SCH (07:32)
[2020-03-12] MEDS: Linezolid 600 MG IVPREMIX(*) 600 MG/300 ML BAG IVPB SCH ×2 (07:33→21:49)
[2020-03-12] MEDS: Latanoprost 0.005% 2.5 ml BTL RIGHT EYE SCH (21:49)
[2020-03-13 05:07] LABS: ABS Eosinophils 0.2 10^3/ul (0-0.6); ABS Monocytes 0.9 10^3/ul (0-0.8); ABS Neutrophils 2.9 10^3/ul (1.5-7.7); Eosinophil % 3.8 %; Hematocrit 25 % (42-52); Lymphocyte % 20.7 %; Mean Corpuscular HGB Conc 33 g/dL (31-36); Mean Corpuscular Hemoglobin 29 pg (27-31); Mean Corpuscular Volume 88 fL (80-94); Mean Platelet Volume 7.7 fL (7.4-10.4); Platelet Count 274 10^3/uL (150-450); Red Blood Count 2.79 10^6 /uL (4.18-5.48); Red Cell Distribution Width 22 % (10-15)
[2020-03-13] MEDS: Linezolid 600 MG IVPREMIX(*) 600 MG/300 ML BAG IVPB SCH (07:56)
[2020-03-13] MEDS: Multivitamins ADULT w/MIN LIQ 15 ML UDC PO SCH (07:56)
[2020-03-13 08:12] VITALS: BP 135/85
== END 2020-03-13 11:40 | disposition home health service (06) | DRG 854 ==
LOC: MEDTELE 10:11 → ED 10:11 → MEDTELE 16:03 → MED 03-03 14:13 → MEDTELE 03-08 01:27
PROVIDERS: ADMIT Internal Medicine; ATTEND Pediatrics

== ENCOUNTER 2023-02-03 03:55 | Inpatient (IN) ==
[2023-02-03] MEDS ORDERED: Albuterol 2.5mg/3 ml (0.083%) NEB.SOLN INH ONE (04:04)
[2023-02-03 04:34] LABS: Hematocrit 32.9 % (38-53); Hemoglobin 11.2 g/dL (13.2-16.3); Mean Corpuscular Hemoglobin 34.4 pg (27-33); Mean Corpuscular Hgb Conc 33.9 g/dL (31-36); Mean Corpuscular Volume 101.5 fL (80-97); Mean Platelet Volume 9.2 fL (7.5-11.2); Platelet Count 225 10^3/uL (150-450); Red Blood Count 3.24 10^6/uL (4.06-5.63); Red Cell Distribution Width 16.7 % (12-17); White Blood Count 12.1 10^3/uL (3.6-10.2)
[2023-02-03] MEDS ORDERED: methylPREDNISolone SOD SUCC 125 mg 2 ML VIAL IV ONE ×2 (04:42→14:27)
[2023-02-03 04:54] LABS: Albumin 3.9 g/dL (3.2-5.2); Albumin/Globulin Ratio 1.1 (1-3); Calcium 8.4 mg/dL (8.6-10.3); Creatinine, Serum 1.04 mg/dL (0.67-1.17); Globulin 3.4 g/dL (2-4); Potassium 3.7 mmol/L (3.5-5.0); Total Bilirubin 1.1 mg/dL (0.2-1.0); Total Protein 7.3 g/dL (6.4-8.9); eGFR CKD-EPI 74.9 (>60)
[2023-02-03 05:09] LABS: ABS Basophils 0.1 10^3/uL (0.0-0.1); ABS Eosinophils 0.2 10^3/uL (0.0-0.5); ABS Lymphocytes 0.8 10^3/uL (1.0-4.8); ABS Monocytes 0.9 10^3/uL (0.0-1.1); ABS Neutrophils 10.1 10^3/uL (1.5-7.6); ABS Nucleated RBC 0.01 10^3/ul; Eosinophil % 1.8 %; Nucleated Red Blood Cells % 0.1 %/100WBC (0.0-0.8)
[2023-02-03 05:14] LABS: Venous Bicarbonate HCO3 23.5 mmol/L (24-28)
[2023-02-03] MEDS ORDERED: Iohexol 350 (CONTRAST) 500 ML MDV IV ONE (06:06)
[2023-02-03 06:07] LABS: High Sensitivity Troponin 1 Hr 226 pg/mL (<20)
[2023-02-03] MEDS: Cefepime 2 GM in Dextrose 2 GM/50 ML BAG IV SCH ×2 (12:27→20:16)
[2023-02-03] MEDS ORDERED: Sulfur Hexaflouride MICROSPHR 25 MG VIAL ONE (14:36)
[2023-02-03] MEDS: Enoxaparin 40 MG/0.4 ML SYR SUBCUT SCH (15:05)
[2023-02-04] MEDS: Cefepime 2 GM in Dextrose 2 GM/50 ML BAG IV SCH ×3 (04:12→20:55)
[2023-02-04 05:03] LABS: ABS Lymphocytes 0.4 10^3/uL (1.0-4.8); ABS Monocytes 0.4 10^3/uL (0.0-1.1); ABS Neutrophils 4.9 10^3/uL (1.5-7.6); ABS Nucleated RBC 0.01 10^3/ul; Hematocrit 29.9 % (38-53); Hemoglobin 10.2 g/dL (13.2-16.3); Mean Corpuscular Hemoglobin 34.6 pg (27-33); Mean Corpuscular Volume 101.6 fL (80-97); Mean Platelet Volume 9.2 fL (7.5-11.2); Nucleated Red Blood Cells % 0.2 %/100WBC (0.0-0.8); Platelet Count 221 10^3/uL (150-450); Red Blood Count 2.94 10^6/uL (4.06-5.63); Red Cell Distribution Width 16.9 % (12-17); White Blood Count 5.7 10^3/uL (3.6-10.2)
[2023-02-04 05:31] LABS: Calcium 8.5 mg/dL (8.6-10.3); Creatinine, Serum 0.79 mg/dL (0.67-1.17); Magnesium 2.3 mg/dL (1.9-2.7); Potassium 4.1 mmol/L (3.5-5.0); eGFR CKD-EPI 92.6 (>60)
[2023-02-04] MEDS: methylPREDNISolone SOD SUCC 125 mg 2 ML VIAL IV SCH ×3 (08:32→20:56)
[2023-02-04] MEDS: Enoxaparin 40 MG/0.4 ML SYR SUBCUT SCH (14:09)
[2023-02-05] MEDS: methylPREDNISolone SOD SUCC 125 mg 2 ML VIAL IV SCH ×4 (02:16→19:54)
[2023-02-05] MEDS: Cefepime 2 GM in Dextrose 2 GM/50 ML BAG IV SCH ×3 (03:32→20:30)
[2023-02-05 04:09] LABS: ABS Lymphocytes 0.5 10^3/uL (1.0-4.8); ABS Monocytes 0.3 10^3/uL (0.0-1.1); ABS Neutrophils 8.6 10^3/uL (1.5-7.6); ABS Nucleated RBC 0.03 10^3/ul; Hematocrit 30.5 % (38-53); Hemoglobin 10.4 g/dL (13.2-16.3); Lymphocyte % 5.4 %; Mean Corpuscular Hemoglobin 34.5 pg (27-33); Mean Corpuscular Hgb Conc 34.1 g/dL (31-36); Mean Corpuscular Volume 101.4 fL (80-97); Mean Platelet Volume 8.9 fL (7.5-11.2); Nucleated Red Blood Cells % 0.3 %/100WBC (0.0-0.8); Platelet Count 251 10^3/uL (150-450); Red Blood Count 3.01 10^6/uL (4.06-5.63); Red Cell Distribution Width 17.2 % (12-17); White Blood Count 9.4 10^3/uL (3.6-10.2)
[2023-02-05 04:14] LABS: Calcium 8.7 mg/dL (8.6-10.3); Creatinine, Serum 0.87 mg/dL (0.67-1.17); Magnesium 2.3 mg/dL (1.9-2.7); Potassium 4.1 mmol/L (3.5-5.0)
[2023-02-05] MEDS ORDERED: Morphine 2 MG/ML SYRINGE IV ONE (09:40)
[2023-02-05] MEDS: Enoxaparin 40 MG/0.4 ML SYR SUBCUT SCH (12:42)
[2023-02-06] MEDS: methylPREDNISolone SOD SUCC 125 mg 2 ML VIAL IV SCH ×4 (01:07→20:37)
[2023-02-06] MEDS: Cefepime 2 GM in Dextrose 2 GM/50 ML BAG IV SCH ×3 (03:37→20:35)
[2023-02-06 04:08] LABS: Calcium 8.8 mg/dL (8.6-10.3); Creatinine, Serum 0.93 mg/dL (0.67-1.17); Magnesium 2.4 mg/dL (1.9-2.7); eGFR CKD-EPI 85.6 (>60)
[2023-02-06 04:20] LABS: Hematocrit 32.9 % (38-53); Mean Corpuscular Hemoglobin 33.7 pg (27-33); Mean Corpuscular Hgb Conc 33.4 g/dL (31-36); Mean Platelet Volume 8.3 fL (7.5-11.2); Platelet Count 279 10^3/uL (150-450); Red Blood Count 3.25 10^6/uL (4.06-5.63); Red Cell Distribution Width 17.3 % (12-17); White Blood Count 9.7 10^3/uL (3.6-10.2)
[2023-02-06 04:44] LABS: ABS Lymphocytes 0.6 10^3/uL (1.0-4.8); ABS Monocytes 0.4 10^3/uL (0.0-1.1); ABS Neutrophils 8.6 10^3/uL (1.5-7.6); ABS Nucleated RBC 0.07 10^3/ul; Lymphocyte % 6.6 %; Nucleated Red Blood Cells % 0.7 %/100WBC (0.0-0.8)
[2023-02-06] MEDS: Albuterol HFA INHALER 8 gm MDI INH PRN (08:20)
[2023-02-06] MEDS ORDERED: Morphine 2 MG/ML SYRINGE IV PRN (10:29)
[2023-02-06] MEDS: Enoxaparin 40 MG/0.4 ML SYR SUBCUT SCH (12:46)
[2023-02-06] MEDS ORDERED: Furosemide 20 mg/2 ml IV VIAL IV ONE (16:53)
[2023-02-07] MEDS: Cefepime 2 GM in Dextrose 2 GM/50 ML BAG IV SCH ×3 (03:00→20:00)
[2023-02-07] MEDS: methylPREDNISolone SOD SUCC 125 mg 2 ML VIAL IV SCH ×4 (03:06→19:50)
[2023-02-07 05:08] LABS: Calcium 8.3 mg/dL (8.6-10.3); Creatinine, Serum 0.88 mg/dL (0.67-1.17); Magnesium 2.4 mg/dL (1.9-2.7); Potassium 3.8 mmol/L (3.5-5.0); eGFR CKD-EPI 89.7 (>60)
[2023-02-07 05:56] LABS: Hematocrit 32.1 % (38-53); Hemoglobin 10.9 g/dL (13.2-16.3); Mean Corpuscular Hgb Conc 33.8 g/dL (31-36); Mean Corpuscular Volume 100.4 fL (80-97); Mean Platelet Volume 8.7 fL (7.5-11.2); Platelet Count 273 10^3/uL (150-450); Red Cell Distribution Width 16.7 % (12-17); White Blood Count 8.8 10^3/uL (3.6-10.2)
[2023-02-07] MEDS ORDERED: Albuterol 2.5mg/3 ml (0.083%) NEB.SOLN INH ONE (07:40)
[2023-02-07] MEDS ORDERED: Furosemide 40 mg/4 ml IV VIAL IV ONE (08:03)
[2023-02-07 08:21] LABS: ABS Lymphocytes 0.7 10^3/uL (1.0-4.8); ABS Monocytes 0.5 10^3/uL (0.0-1.1); ABS Neutrophils 7.6 10^3/uL (1.5-7.6); ABS Nucleated RBC 0.06 10^3/ul; Lymphocyte % 8.5 %; Nucleated Red Blood Cells % 0.7 %/100WBC (0.0-0.8)
[2023-02-07 08:22] LABS: RBC Morphology Normal (Normal)
[2023-02-07] MEDS: Enoxaparin 40 MG/0.4 ML SYR SUBCUT SCH (13:30)
[2023-02-08] MEDS: methylPREDNISolone SOD SUCC 125 mg 2 ML VIAL IV SCH ×4 (02:42→20:48)
[2023-02-08] MEDS: Cefepime 2 GM in Dextrose 2 GM/50 ML BAG IV SCH (02:45)
[2023-02-08] MEDS: Albuterol HFA INHALER 8 gm MDI INH PRN (07:40)
[2023-02-08 08:16] LABS: Hematocrit 31.5 % (38-53); Hemoglobin 10.9 g/dL (13.2-16.3); Mean Corpuscular Hemoglobin 34.7 pg (27-33); Mean Corpuscular Hgb Conc 34.8 g/dL (31-36); Mean Corpuscular Volume 99.7 fL (80-97); Mean Platelet Volume 8.9 fL (7.5-11.2); Platelet Count 297 10^3/uL (150-450); Red Blood Count 3.16 10^6/uL (4.06-5.63); Red Cell Distribution Width 17.9 % (12-17); White Blood Count 8.2 10^3/uL (3.6-10.2)
[2023-02-08 08:25] LABS: Calcium 8.6 mg/dL (8.6-10.3); Creatinine, Serum 0.87 mg/dL (0.67-1.17); Magnesium 2.5 mg/dL (1.9-2.7); Potassium 3.9 mmol/L (3.5-5.0)
[2023-02-08 09:49] LABS: ABS Lymphocytes 0.8 10^3/uL (1.0-4.8); ABS Monocytes 0.4 10^3/uL (0.0-1.1); ABS Nucleated RBC 0.06 10^3/ul; Lymphocyte % 9.6 %; Nucleated Red Blood Cells % 0.8 %/100WBC (0.0-0.8)
[2023-02-08 10:56] LABS: Albumin 3.6 g/dL (3.2-5.2); Albumin/Globulin Ratio 1.3 (1-3); Direct Bilirubin 0.1 mg/dL (0.03-0.18); Globulin 2.7 g/dL (2-4); Indirect Bilirubin 0.9 mg/dL (0.3-1.0); Total Protein 6.3 g/dL (6.4-8.9)
[2023-02-08] MEDS: Enoxaparin 40 MG/0.4 ML SYR SUBCUT SCH (13:10)
[2023-02-09] MEDS: methylPREDNISolone SOD SUCC 125 mg 2 ML VIAL IV SCH ×4 (02:55→20:41)
[2023-02-09 05:20] LABS: Hematocrit 29.5 % (38-53); Hemoglobin 10.2 g/dL (13.2-16.3); Mean Corpuscular Hemoglobin 34.7 pg (27-33); Mean Corpuscular Hgb Conc 34.4 g/dL (31-36); Mean Corpuscular Volume 100.7 fL (80-97); Mean Platelet Volume 8.8 fL (7.5-11.2); Platelet Count 288 10^3/uL (150-450); Red Blood Count 2.93 10^6/uL (4.06-5.63); Red Cell Distribution Width 17.2 % (12-17); White Blood Count 8.4 10^3/uL (3.6-10.2)
[2023-02-09 05:34] LABS: Calcium 8.3 mg/dL (8.6-10.3); Creatinine, Serum 0.7 mg/dL (0.67-1.17); Magnesium 2.5 mg/dL (1.9-2.7); Potassium 4.2 mmol/L (3.5-5.0); eGFR CKD-EPI 96.1 (>60)
[2023-02-09 05:41] LABS: ABS Lymphocytes 0.4 10^3/uL (1.0-4.8); ABS Monocytes 0.4 10^3/uL (0.0-1.1); ABS Neutrophils 7.6 10^3/uL (1.5-7.6); Lymphocyte % 4.2 %; Nucleated Red Blood Cells % 1.2 %/100WBC (0.0-0.8)
[2023-02-09] MEDS: Enoxaparin 40 MG/0.4 ML SYR SUBCUT SCH (13:45)
[2023-02-10] MEDS: methylPREDNISolone SOD SUCC 125 mg 2 ML VIAL IV SCH ×2 (02:18→08:33)
[2023-02-10 04:58] LABS: Calcium 8.3 mg/dL (8.6-10.3); Creatinine, Serum 0.89 mg/dL (0.67-1.17); Magnesium 2.5 mg/dL (1.9-2.7); Phosphorus 2.9 mg/dL (2.5-5.0); Potassium 4.4 mmol/L (3.5-5.0); eGFR CKD-EPI 89.4 (>60)
[2023-02-10 05:35] LABS: ABS Basophils 0.1 10^3/uL (0.0-0.1); ABS Lymphocytes 0.3 10^3/uL (1.0-4.8); ABS Monocytes 0.5 10^3/uL (0.0-1.1); ABS Nucleated RBC 0.09 10^3/ul; Anisocytosis 1+; Hematocrit 30.1 % (38-53); Hemoglobin 10.2 g/dL (13.2-16.3); Lymphocyte % 3.9 %; Macrocytosis 1+; Mean Corpuscular Hemoglobin 34.2 pg (27-33); Mean Corpuscular Hgb Conc 33.9 g/dL (31-36); Mean Corpuscular Volume 100.8 fL (80-97); Mean Platelet Volume 8.8 fL (7.5-11.2); Nucleated Red Blood Cells % 1.1 %/100WBC (0.0-0.8); Platelet Count 282 10^3/uL (150-450); Red Blood Count 2.99 10^6/uL (4.06-5.63); Red Cell Distribution Width 18.2 % (12-17); Schistocytes 1+; White Blood Count 8.9 10^3/uL (3.6-10.2)
[2023-02-10] MEDS: Enoxaparin 40 MG/0.4 ML SYR SUBCUT SCH (14:17)
[2023-02-10] MEDS: methylPREDNISolone SOD SUCC 40 mg/ml 1 ml VIAL IV SCH (17:24)
[2023-02-11] MEDS: methylPREDNISolone SOD SUCC 40 mg/ml 1 ml VIAL IV SCH ×2 (04:09→17:43)
[2023-02-11 04:27] LABS: Hemoglobin 10.6 g/dL (13.2-16.3); Mean Corpuscular Hemoglobin 34.6 pg (27-33); Mean Corpuscular Hgb Conc 34.1 g/dL (31-36); Mean Corpuscular Volume 101.7 fL (80-97); Mean Platelet Volume 8.9 fL (7.5-11.2); Platelet Count 288 10^3/uL (150-450); Red Blood Count 3.05 10^6/uL (4.06-5.63); Red Cell Distribution Width 17.6 % (12-17); White Blood Count 10.8 10^3/uL (3.6-10.2)
[2023-02-11 04:43] LABS: Calcium 8.3 mg/dL (8.6-10.3); Creatinine, Serum 0.81 mg/dL (0.67-1.17); Potassium 4.3 mmol/L (3.5-5.0); eGFR CKD-EPI 91.9 (>60)
[2023-02-11 05:15] LABS: Ferritin 1397.1 ng/mL (24-336)
[2023-02-11 06:18] LABS: ABS Eosinophils 0.1 10^3/uL (0.0-0.5); ABS Lymphocytes 0.4 10^3/uL (1.0-4.8); ABS Monocytes 0.8 10^3/uL (0.0-1.1); ABS Neutrophils 9.4 10^3/uL (1.5-7.6); ABS Nucleated RBC 0.08 10^3/ul; Anisocytosis 1+; Eosinophil % 1.3 %; Lymphocyte % 3.8 %; Nucleated Red Blood Cells % 0.8 %/100WBC (0.0-0.8)
[2023-02-11] MEDS ORDERED: Furosemide 40 mg/4 ml IV VIAL IV ONE (11:57)
[2023-02-11] MEDS: Enoxaparin 40 MG/0.4 ML SYR SUBCUT SCH (12:16)
[2023-02-12 04:53] LABS: Calcium 8.5 mg/dL (8.6-10.3); Creatinine, Serum 0.85 mg/dL (0.67-1.17); Magnesium 2.3 mg/dL (1.9-2.7); Phosphorus 4.1 mg/dL (2.5-5.0); Potassium 4.2 mmol/L (3.5-5.0); eGFR CKD-EPI 90.6 (>60)
[2023-02-12 05:08] LABS: Hematocrit 32.8 % (38-53); Hemoglobin 10.8 g/dL (13.2-16.3); Mean Corpuscular Hemoglobin 33.4 pg (27-33); Mean Corpuscular Volume 101.2 fL (80-97); Mean Platelet Volume 9.2 fL (7.5-11.2); Platelet Count 297 10^3/uL (150-450); Red Blood Count 3.24 10^6/uL (4.06-5.63); Red Cell Distribution Width 17.9 % (12-17); White Blood Count 11.8 10^3/uL (3.6-10.2)
[2023-02-12] MEDS: methylPREDNISolone SOD SUCC 40 mg/ml 1 ml VIAL IV SCH ×2 (05:12→17:19)
[2023-02-12 08:03] LABS: ABS Basophils 0.1 10^3/uL (0.0-0.1); ABS Lymphocytes 0.5 10^3/uL (1.0-4.8); ABS Monocytes 0.9 10^3/uL (0.0-1.1); ABS Neutrophils 10.4 10^3/uL (1.5-7.6); ABS Nucleated RBC 0.05 10^3/ul; Lymphocyte % 3.9 %; Macrocytosis 1+; Nucleated Red Blood Cells % 0.4 %/100WBC (0.0-0.8)
[2023-02-12] MEDS: Albuterol HFA INHALER 8 gm MDI INH PRN (08:18)
[2023-02-12] MEDS ORDERED: Furosemide 20 mg/2 ml IV VIAL IV ONE (08:37)
[2023-02-12] MEDS: Enoxaparin 40 MG/0.4 ML SYR SUBCUT SCH (13:19)
[2023-02-13] MEDS: methylPREDNISolone SOD SUCC 40 mg/ml 1 ml VIAL IV SCH ×2 (04:53→17:09)
[2023-02-13] MEDS ORDERED: Guaifenesin/Pseudo 600/60(NF) TAB (Mucinex D) PO PRN (08:28)
[2023-02-13] MEDS ORDERED: Furosemide 40 mg/4 ml IV VIAL IV ONE (08:35)
[2023-02-13] MEDS: Albuterol HFA INHALER 8 gm MDI INH PRN ×2 (10:20→17:10)
[2023-02-13] MEDS: Enoxaparin 40 MG/0.4 ML SYR SUBCUT SCH (14:12)
[2023-02-13] MEDS ORDERED: methylPREDNISolone SOD SUCC 40 mg/ml 1 ml VIAL IV SCH (17:00)
[2023-02-14] MEDS: methylPREDNISolone SOD SUCC 40 mg/ml 1 ml VIAL IV SCH ×3 (01:20→17:57)
[2023-02-14 04:52] LABS: Hemoglobin 10.8 g/dL (13.2-16.3); Mean Corpuscular Hemoglobin 33.8 pg (27-33); Mean Corpuscular Hgb Conc 33.7 g/dL (31-36); Mean Corpuscular Volume 100.5 fL (80-97); Mean Platelet Volume 9.5 fL (7.5-11.2); Platelet Count 267 10^3/uL (150-450); Red Blood Count 3.18 10^6/uL (4.06-5.63); White Blood Count 11.7 10^3/uL (3.6-10.2)
[2023-02-14 05:28] LABS: ABS Lymphocytes 0.3 10^3/uL (1.0-4.8); ABS Monocytes 0.6 10^3/uL (0.0-1.1); ABS Neutrophils 10.8 10^3/uL (1.5-7.6); ABS Nucleated RBC 0.06 10^3/ul; Anisocytosis 1+; Basophilic Stippling 1+; Lymphocyte % 2.5 %; Macrocytosis 1+; Nucleated Red Blood Cells % 0.5 %/100WBC (0.0-0.8)
[2023-02-14 06:26] LABS: Calcium 8.6 mg/dL (8.6-10.3); Creatinine, Serum 0.77 mg/dL (0.67-1.17); Magnesium 2.2 mg/dL (1.9-2.7); Potassium 4.2 mmol/L (3.5-5.0); eGFR CKD-EPI 93.4 (>60)
[2023-02-14] MEDS ORDERED: Furosemide 20 mg/2 ml IV VIAL IV ONE (07:58)
[2023-02-14] MEDS: Furosemide 100 mg/10 ml IV 100 MG in NS 0.9% 100 ml BAG 90 ML IV SCH ×2 (10:56→23:11)
[2023-02-14] MEDS: Enoxaparin 40 MG/0.4 ML SYR SUBCUT SCH (13:00)
[2023-02-15 00:41] LABS: Calcium 8.9 mg/dL (8.6-10.3); Creatinine, Serum 0.89 mg/dL (0.67-1.17); Magnesium 2.2 mg/dL (1.9-2.7); Phosphorus 4.9 mg/dL (2.5-5.0); Potassium 3.6 mmol/L (3.5-5.0); eGFR CKD-EPI 89.4 (>60)
[2023-02-15] MEDS: methylPREDNISolone SOD SUCC 40 mg/ml 1 ml VIAL IV SCH ×3 (02:05→18:21)
[2023-02-15 05:55] LABS: Hematocrit 32.9 % (38-53); Hemoglobin 11.1 g/dL (13.2-16.3); Mean Corpuscular Hemoglobin 34.1 pg (27-33); Mean Corpuscular Hgb Conc 33.9 g/dL (31-36); Mean Corpuscular Volume 100.7 fL (80-97); Platelet Count 260 10^3/uL (150-450); Red Blood Count 3.27 10^6/uL (4.06-5.63); Red Cell Distribution Width 18.3 % (12-17); White Blood Count 11.1 10^3/uL (3.6-10.2)
[2023-02-15 06:11] LABS: Calcium 8.7 mg/dL (8.6-10.3); Creatinine, Serum 0.86 mg/dL (0.67-1.17); Magnesium 2.3 mg/dL (1.9-2.7); Phosphorus 4.4 mg/dL (2.5-5.0); Potassium 3.5 mmol/L (3.5-5.0); eGFR CKD-EPI 90.3 (>60)
[2023-02-15 06:19] LABS: ABS Lymphocytes 0.3 10^3/uL (1.0-4.8); ABS Monocytes 0.8 10^3/uL (0.0-1.1); ABS Nucleated RBC 0.06 10^3/ul; Eosinophil % 0.1 %; Lymphocyte % 2.7 %; Nucleated Red Blood Cells % 0.6 %/100WBC (0.0-0.8)
[2023-02-15] MEDS ORDERED: Furosemide 40 mg/4 ml IV VIAL IV SLOW PU ONE (10:53)
[2023-02-15] MEDS: Enoxaparin 40 MG/0.4 ML SYR SUBCUT SCH (12:19)
[2023-02-15] MEDS ORDERED: Furosemide 40 mg/4 ml IV VIAL IV ONE (18:36)
[2023-02-16 04:14] LABS: Hematocrit 34.2 % (38-53); Hemoglobin 11.5 g/dL (13.2-16.3); Mean Corpuscular Hemoglobin 33.9 pg (27-33); Mean Corpuscular Hgb Conc 33.5 g/dL (31-36); Mean Platelet Volume 9.9 fL (7.5-11.2); Platelet Count 259 10^3/uL (150-450); Red Blood Count 3.38 10^6/uL (4.06-5.63); Red Cell Distribution Width 18.5 % (12-17); White Blood Count 12.8 10^3/uL (3.6-10.2)
[2023-02-16 04:29] LABS: Calcium 9.2 mg/dL (8.6-10.3); Creatinine, Serum 0.92 mg/dL (0.67-1.17); Magnesium 2.5 mg/dL (1.9-2.7); Phosphorus 5.1 mg/dL (2.5-5.0); Potassium 3.8 mmol/L (3.5-5.0); eGFR CKD-EPI 86.7 (>60)
[2023-02-16 04:31] LABS: ABS Basophils 0.1 10^3/uL (0.0-0.1); ABS Lymphocytes 0.4 10^3/uL (1.0-4.8); ABS Monocytes 1.1 10^3/uL (0.0-1.1); ABS Neutrophils 11.3 10^3/uL (1.5-7.6); ABS Nucleated RBC 0.02 10^3/ul; Eosinophil % 0.1 %; Nucleated Red Blood Cells % 0.1 %/100WBC (0.0-0.8)
[2023-02-16] MEDS ORDERED: Potassium Chlor 20 meq TAB.ER PO ONE (07:25)
[2023-02-16] MEDS: methylPREDNISolone SOD SUCC 40 mg/ml 1 ml VIAL IV SCH ×2 (08:27→20:18)
[2023-02-16] MEDS: Furosemide 40 mg/4 ml IV VIAL IV SCH ×2 (08:27→20:18)
[2023-02-16] MEDS: Enoxaparin 40 MG/0.4 ML SYR SUBCUT SCH (14:06)
[2023-02-16 20:08] LABS: Calcium 9.2 mg/dL (8.6-10.3); Creatinine, Serum 1.09 mg/dL (0.67-1.17); Potassium 3.8 mmol/L (3.5-5.0); eGFR CKD-EPI 70.8 (>60)
[2023-02-17 04:20] LABS: Hematocrit 37.1 % (38-53); Hemoglobin 12.3 g/dL (13.2-16.3); Mean Corpuscular Hemoglobin 33.7 pg (27-33); Mean Corpuscular Hgb Conc 33.1 g/dL (31-36); Mean Corpuscular Volume 101.8 fL (80-97); Platelet Count 265 10^3/uL (150-450); Red Blood Count 3.65 10^6/uL (4.06-5.63); Red Cell Distribution Width 18.9 % (12-17); White Blood Count 14.7 10^3/uL (3.6-10.2)
[2023-02-17 04:33] LABS: Calcium 9.6 mg/dL (8.6-10.3); Magnesium 2.6 mg/dL (1.9-2.7); Phosphorus 5.4 mg/dL (2.5-5.0); Potassium 3.9 mmol/L (3.5-5.0); eGFR CKD-EPI 78.5 (>60)
[2023-02-17 04:44] LABS: ABS Basophils 0.3 10^3/uL (0.0-0.1); ABS Lymphocytes 0.5 10^3/uL (1.0-4.8); ABS Monocytes 0.9 10^3/uL (0.0-1.1); ABS Nucleated RBC 0.03 10^3/ul; Lymphocyte % 3.5 %; Nucleated Red Blood Cells % 0.2 %/100WBC (0.0-0.8)
[2023-02-17] MEDS: Furosemide 40 mg/4 ml IV VIAL IV SCH ×3 (08:06→20:04)
[2023-02-17] MEDS: methylPREDNISolone SOD SUCC 40 mg/ml 1 ml VIAL IV SCH ×2 (08:06→20:04)
[2023-02-17] MEDS: Fluticasone NASAL SPRAY 50MCG 16 gm SPRAY BTL BOTH NARES PRN (09:03)
[2023-02-17] MEDS: Albuterol HFA INHALER 8 gm MDI INH PRN (09:04)
[2023-02-17] MEDS ORDERED: Nitroglycerin 0.3 mg TAB SL PRN (12:06)
[2023-02-17] MEDS ORDERED: Morphine 2 MG/ML SYRINGE IV ONE (12:28)
[2023-02-17] MEDS: Enoxaparin 40 MG/0.4 ML SYR SUBCUT SCH (12:49)
[2023-02-17 13:50] LABS: High Sensitivity Troponin 1 Hr 62 pg/mL (<20)
[2023-02-17 14:59] LABS: Calcium 9.5 mg/dL (8.6-10.3); Creatinine, Serum 1.27 mg/dL (0.67-1.17); Potassium 3.5 mmol/L (3.5-5.0); eGFR CKD-EPI 58.9 (>60)
[2023-02-17 15:06] LABS: High Sensitivity Troponin 3 Hr 35 pg/mL (<20)
[2023-02-18 04:17] LABS: Hematocrit 40.3 % (38-53); Hemoglobin 13.7 g/dL (13.2-16.3); Mean Corpuscular Hemoglobin 34.4 pg (27-33); Mean Corpuscular Hgb Conc 34.1 g/dL (31-36); Mean Corpuscular Volume 100.9 fL (80-97); Mean Platelet Volume 9.1 fL (7.5-11.2); Platelet Count 260 10^3/uL (150-450); Red Blood Count 3.99 10^6/uL (4.06-5.63); Red Cell Distribution Width 18.6 % (12-17); White Blood Count 16.1 10^3/uL (3.6-10.2)
[2023-02-18 04:27] LABS: Calcium 9.7 mg/dL (8.6-10.3); Magnesium 2.6 mg/dL (1.9-2.7); Phosphorus 4.9 mg/dL (2.5-5.0); Potassium 3.6 mmol/L (3.5-5.0); eGFR CKD-EPI 78.5 (>60)
[2023-02-18 04:31] LABS: ABS Lymphocytes 0.4 10^3/uL (1.0-4.8); ABS Monocytes 1.3 10^3/uL (0.0-1.1); ABS Neutrophils 14.4 10^3/uL (1.5-7.6); ABS Nucleated RBC 0.03 10^3/ul; Eosinophil % 0.1 %; Lymphocyte % 2.2 %; Nucleated Red Blood Cells % 0.2 %/100WBC (0.0-0.8)
[2023-02-18] MEDS ORDERED: Potassium Chlor 20 meq TAB.ER PO ONE (05:55)
[2023-02-18] MEDS ORDERED: Magnesium Sulfate 2 gm BAG 2 GM/50 ML BAG IV ONE (06:00)
[2023-02-18] MEDS: methylPREDNISolone SOD SUCC 40 mg/ml 1 ml VIAL IV SCH ×2 (09:25→20:39)
[2023-02-18] MEDS: Albuterol HFA INHALER 8 gm MDI INH PRN (09:26)
[2023-02-18] MEDS: Fluticasone NASAL SPRAY 50MCG 16 gm SPRAY BTL BOTH NARES PRN (09:27)
[2023-02-18] MEDS: Enoxaparin 40 MG/0.4 ML SYR SUBCUT SCH (13:55)
[2023-02-18] MEDS ORDERED: Al Hydrox/Mg Hydrox/Simet LIQ 30 ML UDC PO PRN (19:27)
[2023-02-19 04:34] LABS: ABS Basophils 0.1 10^3/uL (0.0-0.1); ABS Lymphocytes 0.4 10^3/uL (1.0-4.8); ABS Monocytes 0.9 10^3/uL (0.0-1.1); ABS Neutrophils 13.5 10^3/uL (1.5-7.6); ABS Nucleated RBC 0.01 10^3/ul; Hematocrit 36.8 % (38-53); Hemoglobin 12.3 g/dL (13.2-16.3); Lymphocyte % 2.5 %; Mean Corpuscular Hemoglobin 33.8 pg (27-33); Mean Corpuscular Hgb Conc 33.4 g/dL (31-36); Mean Corpuscular Volume 101.1 fL (80-97); Platelet Count 234 10^3/uL (150-450); Red Blood Count 3.63 10^6/uL (4.06-5.63); Red Cell Distribution Width 18.5 % (12-17); White Blood Count 14.8 10^3/uL (3.6-10.2)
[2023-02-19 04:44] LABS: Calcium 9.4 mg/dL (8.6-10.3); Creatinine, Serum 1.06 mg/dL (0.67-1.17); Potassium 3.6 mmol/L (3.5-5.0); eGFR CKD-EPI 73.2 (>60)
[2023-02-19] MEDS: methylPREDNISolone SOD SUCC 40 mg/ml 1 ml VIAL IV SCH ×2 (07:53→21:17)
[2023-02-19] MEDS: Enoxaparin 40 MG/0.4 ML SYR SUBCUT SCH (12:16)
[2023-02-20 04:39] LABS: Hematocrit 34.9 % (38-53); Hemoglobin 11.7 g/dL (13.2-16.3); Mean Corpuscular Hgb Conc 33.5 g/dL (31-36); Mean Corpuscular Volume 101.6 fL (80-97); Mean Platelet Volume 9.1 fL (7.5-11.2); Platelet Count 188 10^3/uL (150-450); Red Blood Count 3.44 10^6/uL (4.06-5.63); Red Cell Distribution Width 18.4 % (12-17); White Blood Count 18.8 10^3/uL (3.6-10.2)
[2023-02-20 04:57] LABS: Calcium 9.3 mg/dL (8.6-10.3); Creatinine, Serum 0.82 mg/dL (0.67-1.17); Magnesium 2.4 mg/dL (1.9-2.7); Phosphorus 3.5 mg/dL (2.5-5.0); Potassium 3.6 mmol/L (3.5-5.0); eGFR CKD-EPI 91.6 (>60)
[2023-02-20 06:59] LABS: ABS Basophils 0.1 10^3/uL (0.0-0.1); ABS Lymphocytes 0.5 10^3/uL (1.0-4.8); ABS Neutrophils 17.2 10^3/uL (1.5-7.6); ABS Nucleated RBC 0.02 10^3/ul; Lymphocyte % 2.5 %; Nucleated Red Blood Cells % 0.1 %/100WBC (0.0-0.8)
[2023-02-20] MEDS: methylPREDNISolone SOD SUCC 40 mg/ml 1 ml VIAL IV SCH ×2 (09:20→21:03)
[2023-02-20] MEDS: Enoxaparin 40 MG/0.4 ML SYR SUBCUT SCH (13:48)
[2023-02-21 04:28] LABS: Hematocrit 32.4 % (38-53); Hemoglobin 10.9 g/dL (13.2-16.3); Mean Corpuscular Hemoglobin 34.3 pg (27-33); Mean Corpuscular Hgb Conc 33.8 g/dL (31-36); Mean Corpuscular Volume 101.5 fL (80-97); Mean Platelet Volume 9.3 fL (7.5-11.2); Platelet Count 164 10^3/uL (150-450); Red Blood Count 3.19 10^6/uL (4.06-5.63); Red Cell Distribution Width 17.8 % (12-17); White Blood Count 16.4 10^3/uL (3.6-10.2)
[2023-02-21 04:44] LABS: Calcium 8.5 mg/dL (8.6-10.3); Creatinine, Serum 0.81 mg/dL (0.67-1.17); Magnesium 2.3 mg/dL (1.9-2.7); Potassium 3.6 mmol/L (3.5-5.0); eGFR CKD-EPI 91.9 (>60)
[2023-02-21] MEDS: methylPREDNISolone SOD SUCC 40 mg/ml 1 ml VIAL IV SCH ×2 (08:04→19:48)
[2023-02-21 11:30] LABS: Folate 15.35 ng/mL (5.90-24.80)
[2023-02-21] MEDS: Enoxaparin 40 MG/0.4 ML SYR SUBCUT SCH (13:37)
[2023-02-22 04:52] LABS: Hematocrit 30.1 % (38-53); Hemoglobin 10.3 g/dL (13.2-16.3); Mean Corpuscular Hemoglobin 34.3 pg (27-33); Mean Corpuscular Hgb Conc 34.1 g/dL (31-36); Mean Corpuscular Volume 100.4 fL (80-97); Mean Platelet Volume 9.4 fL (7.5-11.2); Platelet Count 150 10^3/uL (150-450); Red Cell Distribution Width 18.1 % (12-17); White Blood Count 16.9 10^3/uL (3.6-10.2)
[2023-02-22 05:01] LABS: Calcium 8.7 mg/dL (8.6-10.3); Creatinine, Serum 0.64 mg/dL (0.67-1.17); Magnesium 2.3 mg/dL (1.9-2.7); Potassium 3.8 mmol/L (3.5-5.0); eGFR CKD-EPI 98.7 (>60)
[2023-02-22 05:16] LABS: ABS Lymphocytes 0.3 10^3/uL (1.0-4.8); ABS Monocytes 0.8 10^3/uL (0.0-1.1); ABS Neutrophils 15.9 10^3/uL (1.5-7.6); ABS Nucleated RBC 0.01 10^3/ul; Lymphocyte % 1.6 %
[2023-02-22] MEDS: methylPREDNISolone SOD SUCC 40 mg/ml 1 ml VIAL IV SCH ×2 (09:02→20:09)
[2023-02-22] MEDS: Enoxaparin 40 MG/0.4 ML SYR SUBCUT SCH (12:58)
[2023-02-22] MEDS ORDERED: Magnesium Hydroxide LIQ 30 ML UDC PO PRN (14:24)
[2023-02-22] MEDS ORDERED: Magnesium Hydroxide LIQ 30 ML UDC PO SCH (21:00)
[2023-02-23] MEDS: methylPREDNISolone SOD SUCC 40 mg/ml 1 ml VIAL IV SCH ×2 (07:54→19:59)
[2023-02-23] MEDS: Enoxaparin 40 MG/0.4 ML SYR SUBCUT SCH (13:15)
[2023-02-23] MEDS: Clotrimazole 1% CREAM 30 gm TOPICAL SCH (20:58)
[2023-02-24 04:53] LABS: Hematocrit 29.9 % (38-53); Hemoglobin 10.2 g/dL (13.2-16.3); Mean Corpuscular Hemoglobin 34.4 pg (27-33); Mean Corpuscular Hgb Conc 34.3 g/dL (31-36); Mean Corpuscular Volume 100.3 fL (80-97); Platelet Count 155 10^3/uL (150-450); Red Blood Count 2.98 10^6/uL (4.06-5.63); Red Cell Distribution Width 18.5 % (12-17); White Blood Count 15.4 10^3/uL (3.6-10.2)
[2023-02-24 05:01] LABS: Calcium 8.2 mg/dL (8.6-10.3); Creatinine, Serum 0.75 mg/dL (0.67-1.17); Magnesium 2.2 mg/dL (1.9-2.7); Phosphorus 2.9 mg/dL (2.5-5.0); Potassium 3.8 mmol/L (3.5-5.0); eGFR CKD-EPI 94.1 (>60)
[2023-02-24 05:46] LABS: ABS Basophils 0.2 10^3/uL (0.0-0.1); ABS Lymphocytes 0.4 10^3/uL (1.0-4.8); ABS Monocytes 0.6 10^3/uL (0.0-1.1); ABS Neutrophils 14.2 10^3/uL (1.5-7.6); ABS Nucleated RBC 0.01 10^3/ul; Anisocytosis 1+; Lymphocyte % 2.3 %; Macrocytosis 1+
[2023-02-24] MEDS: methylPREDNISolone SOD SUCC 40 mg/ml 1 ml VIAL IV SCH (08:37)
[2023-02-24] MEDS: Clotrimazole 1% CREAM 30 gm TOPICAL SCH (08:43)
[2023-02-24 12:36] VITALS: BP 113/60
[2023-02-24] MEDS: Enoxaparin 40 MG/0.4 ML SYR SUBCUT SCH (12:40)
== END 2023-02-24 13:25 | disposition home or self-care (01) | DRG 189 ==
LOC: ED 03:55 → EDHOLD 07:41 → SUATTDRO 07:41 → ICU 08:27
PROVIDERS: ADMIT Internal Medicine Critical Care Medicine; ATTEND Internal Medicine Pulmonary Disease

== ENCOUNTER 2023-02-25 04:18 | Inpatient (IN) ==
[2023-02-25] MEDS ORDERED: Azithromycin 500 mg/250 ml NS 500 MG/250 ML BAG IVPB ONE (04:39)
[2023-02-25] MEDS ORDERED: Cefepime 2 GM in Dextrose 2 GM/50 ML BAG IV ONE (04:39)
[2023-02-25] MEDS ORDERED: Lactated Ringers 1000 ml BAG 1,000 ML IV ONE (04:59)
[2023-02-25 05:01] LABS: PCO2 Arterial 36 mmHg (35-45); PO2 Arterial 74 mmHg (80-100)
[2023-02-25 05:07] LABS: Hematocrit 35.7 % (38-53); Mean Corpuscular Hemoglobin 33.8 pg (27-33); Mean Corpuscular Hgb Conc 33.5 g/dL (31-36); Mean Corpuscular Volume 100.8 fL (80-97); Mean Platelet Volume 9.3 fL (7.5-11.2); Platelet Count 216 10^3/uL (150-450); Red Blood Count 3.54 10^6/uL (4.06-5.63); Red Cell Distribution Width 18.9 % (12-17); White Blood Count 24.7 10^3/uL (3.6-10.2)
[2023-02-25 05:18] LABS: Urine Appearance Clear; Urine Bilirubin Negative (Negative); Urine Blood Negative (Negative); Urine Color Yellow; Urine Glucose Negative (Negative); Urine Ketones Negative (Negative); Urine Nitrite Negative (Negative); Urine Protein Negative (Negative); Urine Specific Gravity 1.013 (1.002-1.030); Urine Urobilinogen Negative (Negative)
[2023-02-25 05:26] LABS: Albumin 3.6 g/dL (3.2-5.2); Albumin/Globulin Ratio 1.2 (1-3); C Reactive Protein 42.25 mg/L (<8.01); Calcium 8.6 mg/dL (8.6-10.3); Creatinine, Serum 0.89 mg/dL (0.67-1.17); Potassium 3.5 mmol/L (3.5-5.0); Total Bilirubin 0.6 mg/dL (0.2-1.0); Total Protein 6.6 g/dL (6.4-8.9); eGFR CKD-EPI 89.4 (>60)
[2023-02-25] MEDS ORDERED: methylPREDNISolone SOD SUCC 40 mg/ml 1 ml VIAL IV SCH (06:00)
[2023-02-25] MEDS ORDERED: Enoxaparin 40 MG/0.4 ML SYR SUBCUT SCH (06:00)
[2023-02-25 06:02] LABS: ABS Basophils 0.1 10^3/uL (0.0-0.1); ABS Lymphocytes 1.9 10^3/uL (1.0-4.8); ABS Neutrophils 21.7 10^3/uL (1.5-7.6); ABS Nucleated RBC 0.07 10^3/ul; Eosinophil % 0.1 %; Lymphocyte % 7.8 %; Nucleated Red Blood Cells % 0.3 %/100WBC (0.0-0.8)
[2023-02-25] MEDS ORDERED: Fluticasone NASAL SPRAY 50MCG 16 gm SPRAY BTL BOTH NARES PRN (06:10)
[2023-02-25 06:24] LABS: High Sensitivity Troponin 1 Hr 1114 pg/mL (<20)
[2023-02-25] MEDS ORDERED: Albuterol HFA INHALER 8 gm MDI INH PRN (06:25)
[2023-02-25] MEDS ORDERED: Enoxaparin 80 MG/0.8 ML SYR SUBCUT ONE (06:36)
[2023-02-25 06:49] LABS: Magnesium 1.9 mg/dL (1.9-2.7)
[2023-02-25] MEDS: KCL 20 MEQ/100 ML IVPREMIX 20 MEQ/100 ML BAG IV SCH ×2 (09:00→16:23)
[2023-02-25] MEDS: methylPREDNISolone SOD SUCC 40 mg/ml 1 ml VIAL IV SCH ×2 (09:04→16:24)
[2023-02-25] MEDS: Vitamin THERAPEUTIC TAB PO SCH (09:05)
[2023-02-25] MEDS: Clotrimazole 1% CREAM 30 gm TOPICAL SCH ×2 (11:08→20:40)
[2023-02-25 12:07] LABS: High Sensitivity Troponin 3 Hr 728 pg/mL (<20)
[2023-02-25] MEDS ORDERED: Sulfur Hexaflouride MICROSPHR 25 MG VIAL ONE (13:58)
[2023-02-25] MEDS: Cefepime 2 GM in Dextrose 2 GM/50 ML BAG IV SCH ×2 (14:51→20:46)
[2023-02-25] MEDS ORDERED: Iohexol 350 (CONTRAST) 500 ML MDV IV ONE ×2 (14:53→17:58)
[2023-02-25] MEDS ORDERED: Lidocaine 1% MPF 5 ML VIAL INJ ONE (15:08)
[2023-02-25] MEDS ORDERED: KCL 20 MEQ/100 ML IVPREMIX 20 MEQ/100 ML BAG ONE (16:22)
[2023-02-26] MEDS: methylPREDNISolone SOD SUCC 40 mg/ml 1 ml VIAL IV SCH ×3 (01:04→20:49)
[2023-02-26] MEDS: Cefepime 2 GM in Dextrose 2 GM/50 ML BAG IV SCH ×2 (04:42→17:40)
[2023-02-26 05:45] LABS: Hematocrit 29.2 % (38-53); Hemoglobin 9.6 g/dL (13.2-16.3); Mean Corpuscular Hemoglobin 33.9 pg (27-33); Mean Corpuscular Hgb Conc 32.7 g/dL (31-36); Mean Corpuscular Volume 103.5 fL (80-97); Mean Platelet Volume 9.7 fL (7.5-11.2); Platelet Count 164 10^3/uL (150-450); Red Blood Count 2.82 10^6/uL (4.06-5.63); Red Cell Distribution Width 18.7 % (12-17); White Blood Count 13.8 10^3/uL (3.6-10.2)
[2023-02-26 05:46] LABS: Calcium 8.3 mg/dL (8.6-10.3); Creatinine, Serum 0.58 mg/dL (0.67-1.17); Potassium 4.2 mmol/L (3.5-5.0); eGFR CKD-EPI 101.7 (>60)
[2023-02-26] MEDS: Azithromycin 500 mg/250 ml NS 500 MG/250 ML BAG IVPB SCH (06:02)
[2023-02-26 07:37] LABS: ABS Lymphocytes 0.4 10^3/uL (1.0-4.8); ABS Monocytes 0.4 10^3/uL (0.0-1.1); Lymphocyte % 2.6 %; Macrocytosis 1+
[2023-02-26] MEDS: Vitamin THERAPEUTIC TAB PO SCH (10:01)
[2023-02-26] MEDS: Furosemide 40 mg/4 ml IV VIAL IV SCH (10:01)
[2023-02-26] MEDS: Clotrimazole 1% CREAM 30 gm TOPICAL SCH (10:07)
[2023-02-26] MEDS ORDERED: Magnesium Sulfate 2 gm BAG 2 GM/50 ML BAG IVPB ONE (11:36)
[2023-02-26] MEDS ORDERED: Ketamine HCL 50 mg/ml 10 ml VIAL (500 MG) ONE (20:11)
[2023-02-26] MEDS ORDERED: Phenylephrine 40 mcg/mL 10mL (400mcg) SYRINGE ONE (20:12)
[2023-02-26] MEDS ORDERED: Metoprolol Tartrate 5 mg VIAL 5 ml VIAL (1 mg/ml) ONE (21:45)
[2023-02-26] MEDS: Metoprolol Tartrate 5 mg VIAL 5 ml VIAL (1 mg/ml) IV PRN (21:47)
[2023-02-27] MEDS: Clotrimazole 1% CREAM 30 gm TOPICAL SCH ×3 (02:10→20:39)
[2023-02-27] MEDS: Cefepime 2 GM in Dextrose 2 GM/50 ML BAG IV SCH ×3 (02:15→17:34)
[2023-02-27] MEDS: Metoprolol Tartrate 5 mg VIAL 5 ml VIAL (1 mg/ml) IV PRN ×4 (02:20→21:04)
[2023-02-27] MEDS ORDERED: Digoxin IV 0.5 MG/2 ML AMP (0.25 MG/ML) IV SLOW PU ONE ×2 (03:29→12:11)
[2023-02-27] MEDS: Azithromycin 500 mg/250 ml NS 500 MG/250 ML BAG IVPB SCH (06:04)
[2023-02-27 06:08] LABS: Hematocrit 28.3 % (38-53); Hemoglobin 9.5 g/dL (13.2-16.3); Mean Corpuscular Hemoglobin 34.1 pg (27-33); Mean Corpuscular Hgb Conc 33.8 g/dL (31-36); Mean Platelet Volume 8.7 fL (7.5-11.2); Platelet Count 197 10^3/uL (150-450); White Blood Count 14.8 10^3/uL (3.6-10.2)
[2023-02-27 08:00] LABS: ABS Basophils 0.1 10^3/uL (0.0-0.1); ABS Lymphocytes 0.3 10^3/uL (1.0-4.8); ABS Monocytes 0.6 10^3/uL (0.0-1.1); ABS Neutrophils 13.8 10^3/uL (1.5-7.6); ABS Nucleated RBC 0.02 10^3/ul; Eosinophil % 0.1 %; Lymphocyte % 2.1 %; Nucleated Red Blood Cells % 0.1 %/100WBC (0.0-0.8)
[2023-02-27 08:01] LABS: Macrocytosis 1+
[2023-02-27 08:31] LABS: Calcium 8.1 mg/dL (8.6-10.3); Creatinine, Serum 0.82 mg/dL (0.67-1.17); eGFR CKD-EPI 91.6 (>60)
[2023-02-27] MEDS: Vitamin THERAPEUTIC TAB PO SCH (09:04)
[2023-02-27] MEDS: Furosemide 40 mg/4 ml IV VIAL IV SCH (09:06)
[2023-02-27] MEDS: methylPREDNISolone SOD SUCC 40 mg/ml 1 ml VIAL IV SCH ×2 (09:06→20:28)
[2023-02-27] MEDS: Enoxaparin 40 MG/0.4 ML SYR SUBCUT SCH (14:51)
[2023-02-27] MEDS ORDERED: Lactated Ringers 1000 ml BAG 1,000 ML IV SCH (15:00)
[2023-02-28] MEDS: Cefepime 2 GM in Dextrose 2 GM/50 ML BAG IV SCH ×3 (00:40→17:05)
[2023-02-28 04:42] LABS: Hematocrit 28.8 % (38-53); Hemoglobin 9.9 g/dL (13.2-16.3); Mean Corpuscular Hemoglobin 34.6 pg (27-33); Mean Corpuscular Hgb Conc 34.3 g/dL (31-36); Mean Corpuscular Volume 100.9 fL (80-97); Mean Platelet Volume 9.3 fL (7.5-11.2); Platelet Count 206 10^3/uL (150-450); Red Blood Count 2.86 10^6/uL (4.06-5.63); Red Cell Distribution Width 18.6 % (12-17); White Blood Count 10.6 10^3/uL (3.6-10.2)
[2023-02-28 04:58] LABS: Calcium 8.2 mg/dL (8.6-10.3); Creatinine, Serum 0.78 mg/dL (0.67-1.17); Magnesium 2.2 mg/dL (1.9-2.7); Potassium 4.1 mmol/L (3.5-5.0)
[2023-02-28 05:18] LABS: ABS Basophils 0.1 10^3/uL (0.0-0.1); ABS Lymphocytes 0.3 10^3/uL (1.0-4.8); ABS Monocytes 0.4 10^3/uL (0.0-1.1); ABS Neutrophils 9.8 10^3/uL (1.5-7.6); ABS Nucleated RBC 0.03 10^3/ul; Anisocytosis 1+; Lymphocyte % 2.8 %; Macrocytosis 1+; Nucleated Red Blood Cells % 0.3 %/100WBC (0.0-0.8)
[2023-02-28 05:34] LABS: Digoxin 1.6 ng/ml (0.8-2.0)
[2023-02-28] MEDS: Metoprolol Tartrate 5 mg VIAL 5 ml VIAL (1 mg/ml) IV PRN ×2 (08:17→12:15)
[2023-02-28] MEDS: methylPREDNISolone SOD SUCC 40 mg/ml 1 ml VIAL IV SCH ×2 (08:17→21:09)
[2023-02-28] MEDS: Vitamin THERAPEUTIC TAB PO SCH (08:19)
[2023-02-28] MEDS: Clotrimazole 1% CREAM 30 gm TOPICAL SCH ×2 (08:23→21:32)
[2023-02-28] MEDS: Furosemide 40 mg/4 ml IV VIAL IV SCH (10:56)
[2023-02-28] MEDS ORDERED: Metoprolol Tartrate 5 mg VIAL 5 ml VIAL (1 mg/ml) IV PRN (11:36)
[2023-02-28] MEDS: Enoxaparin 40 MG/0.4 ML SYR SUBCUT SCH (14:46)
[2023-02-28] MEDS ORDERED: Digoxin IV 0.5 MG/2 ML AMP (0.25 MG/ML) IV SLOW PU ONE (18:39)
[2023-03-01] MEDS: Cefepime 2 GM in Dextrose 2 GM/50 ML BAG IV SCH ×3 (00:45→17:13)
[2023-03-01 04:31] LABS: Hematocrit 31.9 % (38-53); Hemoglobin 10.7 g/dL (13.2-16.3); Mean Corpuscular Hemoglobin 33.9 pg (27-33); Mean Corpuscular Hgb Conc 33.6 g/dL (31-36); Mean Corpuscular Volume 100.9 fL (80-97); Mean Platelet Volume 9.1 fL (7.5-11.2); Platelet Count 238 10^3/uL (150-450); Red Blood Count 3.16 10^6/uL (4.06-5.63); Red Cell Distribution Width 18.2 % (12-17); White Blood Count 12.4 10^3/uL (3.6-10.2)
[2023-03-01 04:50] LABS: Calcium 8.5 mg/dL (8.6-10.3); Creatinine, Serum 0.81 mg/dL (0.67-1.17); Magnesium 2.2 mg/dL (1.9-2.7); Potassium 4.2 mmol/L (3.5-5.0); eGFR CKD-EPI 91.9 (>60)
[2023-03-01 04:56] LABS: Digoxin 2.1 ng/ml (0.8-2.0)
[2023-03-01 05:23] LABS: ABS Lymphocytes 0.3 10^3/uL (1.0-4.8); ABS Monocytes 0.4 10^3/uL (0.0-1.1); ABS Neutrophils 11.6 10^3/uL (1.5-7.6); ABS Nucleated RBC 0.02 10^3/ul; Lymphocyte % 2.7 %; Nucleated Red Blood Cells % 0.2 %/100WBC (0.0-0.8)
[2023-03-01] MEDS: Vitamin THERAPEUTIC TAB PO SCH (09:05)
[2023-03-01] MEDS: Clotrimazole 1% CREAM 30 gm TOPICAL SCH ×3 (09:09→21:14)
[2023-03-01] MEDS: methylPREDNISolone SOD SUCC 40 mg/ml 1 ml VIAL IV SCH ×2 (09:09→21:07)
[2023-03-01] MEDS: Metoprolol Tartrate 5 mg VIAL 5 ml VIAL (1 mg/ml) IV PRN (09:17)
[2023-03-01] MEDS: Enoxaparin 40 MG/0.4 ML SYR SUBCUT SCH (14:29)
[2023-03-01] MEDS ORDERED: PHENYLEPHRINE DRIP IVPREMIX 50 MG/250 ML BAG IV SCH (15:00)
[2023-03-01] MEDS ORDERED: Lactated Ringers 1000 ml BAG 1,000 ML IV SCH (15:00)
[2023-03-02] MEDS: Cefepime 2 GM in Dextrose 2 GM/50 ML BAG IV SCH ×2 (00:27→09:13)
[2023-03-02 05:35] LABS: Hematocrit 30.6 % (38-53); Hemoglobin 10.3 g/dL (13.2-16.3); Mean Corpuscular Hemoglobin 33.6 pg (27-33); Mean Corpuscular Hgb Conc 33.6 g/dL (31-36); Mean Platelet Volume 9.2 fL (7.5-11.2); Platelet Count 217 10^3/uL (150-450); Red Blood Count 3.07 10^6/uL (4.06-5.63); Red Cell Distribution Width 18.6 % (12-17); White Blood Count 13.1 10^3/uL (3.6-10.2)
[2023-03-02 05:50] LABS: Calcium 8.3 mg/dL (8.6-10.3); Creatinine, Serum 0.84 mg/dL (0.67-1.17); Magnesium 2.1 mg/dL (1.9-2.7); Potassium 4.3 mmol/L (3.5-5.0); eGFR CKD-EPI 90.9 (>60)
[2023-03-02 05:53] LABS: ABS Basophils 0.1 10^3/uL (0.0-0.1); ABS Lymphocytes 0.4 10^3/uL (1.0-4.8); ABS Monocytes 0.5 10^3/uL (0.0-1.1); ABS Nucleated RBC 0.04 10^3/ul; Anisocytosis 1+; Eosinophil % 0.1 %; Lymphocyte % 2.9 %; Macrocytosis 1+; Nucleated Red Blood Cells % 0.3 %/100WBC (0.0-0.8)
[2023-03-02 06:11] LABS: Digoxin 1.5 ng/ml (0.8-2.0)
[2023-03-02] MEDS: Clotrimazole 1% CREAM 30 gm TOPICAL SCH ×2 (09:14→23:47)
[2023-03-02] MEDS: Vitamin THERAPEUTIC TAB PO SCH (09:15)
[2023-03-02] MEDS: methylPREDNISolone SOD SUCC 40 mg/ml 1 ml VIAL IV SCH ×2 (09:18→21:23)
[2023-03-02 13:16] LABS: Fungitell Qualitative Result Positive (Negative); Fungitell Quantitative Value 295 pg/mL (<60 pg/mL)
[2023-03-02] MEDS: Enoxaparin 40 MG/0.4 ML SYR SUBCUT SCH (14:07)
[2023-03-03] MEDS ORDERED: Anidulafungin 200 MG in NS 0.9% 250 ml 200 ML IVPB ONE (09:21)
[2023-03-03] MEDS: methylPREDNISolone SOD SUCC 40 mg/ml 1 ml VIAL IV SCH (09:38)
[2023-03-03] MEDS: Vitamin THERAPEUTIC TAB PO SCH (09:38)
[2023-03-03] MEDS: Clotrimazole 1% CREAM 30 gm TOPICAL SCH ×2 (09:51→20:58)
[2023-03-03] MEDS: Cefepime 1 GM in Dextrose 1 GM/50 ML BAG IV SCH ×2 (09:57→21:47)
[2023-03-03 10:19] LABS: Hematocrit 33.3 % (38-53); Hemoglobin 11.2 g/dL (13.2-16.3); Mean Corpuscular Hgb Conc 33.7 g/dL (31-36); Mean Platelet Volume 8.6 fL (7.5-11.2); Platelet Count 248 10^3/uL (150-450); Red Cell Distribution Width 18.5 % (12-17); White Blood Count 17.1 10^3/uL (3.6-10.2)
[2023-03-03 12:54] LABS: ABS Basophils 0.1 10^3/uL (0.0-0.1); ABS Lymphocytes 0.8 10^3/uL (1.0-4.8); ABS Monocytes 0.8 10^3/uL (0.0-1.1); ABS Neutrophils 15.4 10^3/uL (1.5-7.6); ABS Nucleated RBC 0.13 10^3/ul; Lymphocyte % 4.6 %; Nucleated Red Blood Cells % 0.7 %/100WBC (0.0-0.8)
[2023-03-03] MEDS: Enoxaparin 40 MG/0.4 ML SYR SUBCUT SCH (15:04)
[2023-03-03] MEDS: Sulfamethox/Trimethoprim DS TAB 800/160 mg PO SCH ×2 (15:04→20:52)
[2023-03-03] MEDS: Metoprolol Tartrate 5 mg VIAL 5 ml VIAL (1 mg/ml) IV PRN (18:26)
[2023-03-04 04:35] LABS: Hematocrit 30.2 % (38-53); Hemoglobin 10.3 g/dL (13.2-16.3); Mean Corpuscular Hemoglobin 34.1 pg (27-33); Mean Corpuscular Volume 100.3 fL (80-97); Mean Platelet Volume 9.5 fL (7.5-11.2); Platelet Count 216 10^3/uL (150-450); Red Blood Count 3.01 10^6/uL (4.06-5.63); Red Cell Distribution Width 19.3 % (12-17); White Blood Count 15.8 10^3/uL (3.6-10.2)
[2023-03-04 04:50] LABS: Calcium 8.2 mg/dL (8.6-10.3); Creatinine, Serum 0.79 mg/dL (0.67-1.17); Potassium 4.5 mmol/L (3.5-5.0); eGFR CKD-EPI 92.6 (>60)
[2023-03-04 05:04] LABS: ABS Basophils 0.1 10^3/uL (0.0-0.1); ABS Eosinophils 0.4 10^3/uL (0.0-0.5); ABS Lymphocytes 0.5 10^3/uL (1.0-4.8); ABS Monocytes 0.5 10^3/uL (0.0-1.1); ABS Neutrophils 14.3 10^3/uL (1.5-7.6); ABS Nucleated RBC 0.05 10^3/ul; Anisocytosis 1+; Eosinophil % 2.7 %; Lymphocyte % 3.4 %; Macrocytosis 1+; Nucleated Red Blood Cells % 0.3 %/100WBC (0.0-0.8)
[2023-03-04] MEDS: Sulfamethox/Trimethoprim DS TAB 800/160 mg PO SCH ×3 (06:03→20:21)
[2023-03-04] MEDS: Anidulafungin 100 MG in NS 0.9% 100 ml BAG 100 ML IVPB SCH (10:08)
[2023-03-04] MEDS: Vitamin THERAPEUTIC TAB PO SCH (10:08)
[2023-03-04] MEDS: Clotrimazole 1% CREAM 30 gm TOPICAL SCH ×2 (10:08→20:36)
[2023-03-04] MEDS: Cefepime 1 GM in Dextrose 1 GM/50 ML BAG IV SCH ×2 (10:09→21:10)
[2023-03-04] MEDS: Enoxaparin 40 MG/0.4 ML SYR SUBCUT SCH (14:02)
[2023-03-04] MEDS: Metoprolol Tartrate 5 mg VIAL 5 ml VIAL (1 mg/ml) IV PRN (14:12)
[2023-03-05] MEDS: Sulfamethox/Trimethoprim DS TAB 800/160 mg PO SCH ×3 (04:00→20:37)
[2023-03-05 04:28] LABS: Hematocrit 30.4 % (38-53); Hemoglobin 10.3 g/dL (13.2-16.3); Mean Corpuscular Hemoglobin 34.2 pg (27-33); Mean Corpuscular Hgb Conc 33.8 g/dL (31-36); Mean Platelet Volume 8.7 fL (7.5-11.2); Platelet Count 213 10^3/uL (150-450); Red Blood Count 3.01 10^6/uL (4.06-5.63); Red Cell Distribution Width 18.9 % (12-17); White Blood Count 17.4 10^3/uL (3.6-10.2)
[2023-03-05 04:45] LABS: Calcium 8.3 mg/dL (8.6-10.3); Creatinine, Serum 0.87 mg/dL (0.67-1.17); Potassium 4.7 mmol/L (3.5-5.0)
[2023-03-05 04:59] LABS: ABS Basophils 0.1 10^3/uL (0.0-0.1); ABS Lymphocytes 0.7 10^3/uL (1.0-4.8); ABS Monocytes 0.5 10^3/uL (0.0-1.1); ABS Nucleated RBC 0.06 10^3/ul; Digoxin 0.8 ng/ml (0.8-2.0); Eosinophil % 0.1 %; Nucleated Red Blood Cells % 0.3 %/100WBC (0.0-0.8)
[2023-03-05] MEDS: Vitamin THERAPEUTIC TAB PO SCH (08:48)
[2023-03-05] MEDS: Clotrimazole 1% CREAM 30 gm TOPICAL SCH ×2 (08:52→20:40)
[2023-03-05] MEDS: Anidulafungin 100 MG in NS 0.9% 100 ml BAG 100 ML IVPB SCH (08:57)
[2023-03-05] MEDS: Cefepime 1 GM in Dextrose 1 GM/50 ML BAG IV SCH ×2 (11:23→21:28)
[2023-03-05] MEDS: Enoxaparin 40 MG/0.4 ML SYR SUBCUT SCH (13:49)
[2023-03-06] MEDS: Sulfamethox/Trimethoprim DS TAB 800/160 mg PO SCH ×3 (04:36→20:25)
[2023-03-06 05:02] LABS: Hematocrit 29.6 % (38-53); Hemoglobin 10.1 g/dL (13.2-16.3); Mean Corpuscular Hemoglobin 34.4 pg (27-33); Mean Corpuscular Hgb Conc 34.3 g/dL (31-36); Mean Corpuscular Volume 100.4 fL (80-97); Mean Platelet Volume 9.2 fL (7.5-11.2); Platelet Count 212 10^3/uL (150-450); Red Blood Count 2.94 10^6/uL (4.06-5.63); Red Cell Distribution Width 19.5 % (12-17); White Blood Count 14.2 10^3/uL (3.6-10.2)
[2023-03-06 05:24] LABS: ABS Basophils 0.1 10^3/uL (0.0-0.1); ABS Lymphocytes 0.8 10^3/uL (1.0-4.8); ABS Monocytes 0.5 10^3/uL (0.0-1.1); ABS Neutrophils 12.9 10^3/uL (1.5-7.6); ABS Nucleated RBC 0.05 10^3/ul; Lymphocyte % 5.7 %; Nucleated Red Blood Cells % 0.3 %/100WBC (0.0-0.8)
[2023-03-06 05:36] LABS: Digoxin 0.9 ng/ml (0.8-2.0)
[2023-03-06 07:24] LABS: Calcium 8.4 mg/dL (8.6-10.3); Creatinine, Serum 0.92 mg/dL (0.67-1.17); Potassium 4.9 mmol/L (3.5-5.0); eGFR CKD-EPI 86.7 (>60)
[2023-03-06] MEDS: Anidulafungin 100 MG in NS 0.9% 100 ml BAG 100 ML IVPB SCH (07:52)
[2023-03-06] MEDS: Vitamin THERAPEUTIC TAB PO SCH (08:02)
[2023-03-06] MEDS: Clotrimazole 1% CREAM 30 gm TOPICAL SCH ×2 (08:06→20:29)
[2023-03-06] MEDS: Cefepime 1 GM in Dextrose 1 GM/50 ML BAG IV SCH ×2 (10:12→20:22)
[2023-03-06] MEDS: Enoxaparin 40 MG/0.4 ML SYR SUBCUT SCH (13:30)
[2023-03-06] MEDS: Metoprolol Tartrate 5 mg VIAL 5 ml VIAL (1 mg/ml) IV PRN (18:33)
[2023-03-07 05:19] LABS: Hematocrit 29.2 % (38-53); Mean Corpuscular Hemoglobin 34.7 pg (27-33); Mean Corpuscular Hgb Conc 34.4 g/dL (31-36); Mean Corpuscular Volume 100.8 fL (80-97); Mean Platelet Volume 9.5 fL (7.5-11.2); Platelet Count 217 10^3/uL (150-450); Red Blood Count 2.89 10^6/uL (4.06-5.63); Red Cell Distribution Width 19.6 % (12-17)
[2023-03-07] MEDS: Sulfamethox/Trimethoprim DS TAB 800/160 mg PO SCH ×3 (05:25→20:42)
[2023-03-07 05:30] LABS: Calcium 8.5 mg/dL (8.6-10.3); Creatinine, Serum 0.87 mg/dL (0.67-1.17); Potassium 4.9 mmol/L (3.5-5.0)
[2023-03-07 05:44] LABS: Digoxin 1.2 ng/ml (0.8-2.0)
[2023-03-07 06:44] LABS: ABS Basophils 0.1 10^3/uL (0.0-0.1); ABS Eosinophils 0.1 10^3/uL (0.0-0.5); ABS Lymphocytes 0.7 10^3/uL (1.0-4.8); ABS Monocytes 0.4 10^3/uL (0.0-1.1); ABS Neutrophils 10.8 10^3/uL (1.5-7.6); ABS Nucleated RBC 0.07 10^3/ul; Eosinophil % 0.8 %; Lymphocyte % 5.5 %; Nucleated Red Blood Cells % 0.6 %/100WBC (0.0-0.8)
[2023-03-07 06:45] LABS: RBC Morphology Normal (Normal); Toxic Granulation 2+
[2023-03-07] MEDS: Anidulafungin 100 MG in NS 0.9% 100 ml BAG 100 ML IVPB SCH (08:59)
[2023-03-07] MEDS: Vitamin THERAPEUTIC TAB PO SCH (09:04)
[2023-03-07] MEDS: Clotrimazole 1% CREAM 30 gm TOPICAL SCH ×2 (09:07→22:33)
[2023-03-07] MEDS: Cefepime 1 GM in Dextrose 1 GM/50 ML BAG IV SCH ×2 (11:43→20:46)
[2023-03-07] MEDS ORDERED: NS 0.9% 500 ml BAG 500 ML IV ONE (14:13)
[2023-03-07] MEDS: Enoxaparin 40 MG/0.4 ML SYR SUBCUT SCH (14:28)
[2023-03-08] MEDS: Sulfamethox/Trimethoprim DS TAB 800/160 mg PO SCH ×3 (06:53→20:05)
[2023-03-08 08:03] LABS: Hemoglobin 10.7 g/dL (13.2-16.3); Mean Corpuscular Hemoglobin 33.9 pg (27-33); Mean Corpuscular Hgb Conc 33.4 g/dL (31-36); Mean Corpuscular Volume 101.4 fL (80-97); Mean Platelet Volume 9.8 fL (7.5-11.2); Platelet Count 233 10^3/uL (150-450); Red Blood Count 3.16 10^6/uL (4.06-5.63); Red Cell Distribution Width 19.4 % (12-17); White Blood Count 11.7 10^3/uL (3.6-10.2)
[2023-03-08 08:18] LABS: Calcium 8.6 mg/dL (8.6-10.3); Creatinine, Serum 0.84 mg/dL (0.67-1.17); Potassium 4.7 mmol/L (3.5-5.0); eGFR CKD-EPI 90.9 (>60)
[2023-03-08] MEDS: Anidulafungin 100 MG in NS 0.9% 100 ml BAG 100 ML IVPB SCH (09:15)
[2023-03-08] MEDS: Vitamin THERAPEUTIC TAB PO SCH (09:23)
[2023-03-08] MEDS: Clotrimazole 1% CREAM 30 gm TOPICAL SCH ×2 (09:24→20:07)
[2023-03-08 09:50] LABS: ABS Basophils 0.1 10^3/uL (0.0-0.1); ABS Lymphocytes 0.6 10^3/uL (1.0-4.8); ABS Monocytes 0.4 10^3/uL (0.0-1.1); ABS Neutrophils 10.6 10^3/uL (1.5-7.6); ABS Nucleated RBC 0.06 10^3/ul; Anisocytosis 2+; Eosinophil % 0.1 %; Large Platelets Present; Lymphocyte % 5.1 %; Nucleated Red Blood Cells % 0.5 %/100WBC (0.0-0.8)
[2023-03-08 09:52] LABS: ABS Lymphocytes 0.5 10^3/ul (1.0-4.8); ABS Neutrophils 10.9 10^3/ul (1.5-7.6)
[2023-03-08 09:53] LABS: ABS Monocytes 0.3 10^3/ul (0.0-1.1)
[2023-03-08] MEDS: Cefepime 1 GM in Dextrose 1 GM/50 ML BAG IV SCH ×2 (11:50→20:02)
[2023-03-08] MEDS: Enoxaparin 40 MG/0.4 ML SYR SUBCUT SCH (13:04)
[2023-03-09] MEDS: Sulfamethox/Trimethoprim DS TAB 800/160 mg PO SCH ×3 (04:35→20:34)
[2023-03-09 05:14] LABS: Calcium 8.6 mg/dL (8.6-10.3); Creatinine, Serum 0.87 mg/dL (0.67-1.17); Mean Corpuscular Hemoglobin 33.6 pg (27-33); Mean Corpuscular Hgb Conc 33.5 g/dL (31-36); Mean Corpuscular Volume 100.5 fL (80-97); Mean Platelet Volume 9.3 fL (7.5-11.2); Platelet Count 224 10^3/uL (150-450); Potassium 4.6 mmol/L (3.5-5.0); Red Blood Count 3.28 10^6/uL (4.06-5.63); Red Cell Distribution Width 19.7 % (12-17); White Blood Count 15.4 10^3/uL (3.6-10.2)
[2023-03-09 05:42] LABS: ABS Basophils 0.1 10^3/uL (0.0-0.1); ABS Eosinophils 0.1 10^3/uL (0.0-0.5); ABS Lymphocytes 1.1 10^3/uL (1.0-4.8); ABS Monocytes 0.6 10^3/uL (0.0-1.1); ABS Neutrophils 13.6 10^3/uL (1.5-7.6); ABS Nucleated RBC 0.09 10^3/ul; Anisocytosis 1+; Eosinophil % 0.8 %; Lymphocyte % 6.9 %; Macrocytosis 1+; Nucleated Red Blood Cells % 0.6 %/100WBC (0.0-0.8)
[2023-03-09] MEDS ORDERED: Acetaminophen IV 1 GM/100ML 1,000 MG/100 ML BAG IV PRN (06:27)
[2023-03-09] MEDS: Metoprolol Tartrate 5 mg VIAL 5 ml VIAL (1 mg/ml) IV PRN ×2 (06:33→14:16)
[2023-03-09] MEDS: Anidulafungin 100 MG in NS 0.9% 100 ml BAG 100 ML IVPB SCH (08:47)
[2023-03-09] MEDS: Vitamin THERAPEUTIC TAB PO SCH (08:51)
[2023-03-09] MEDS: Clotrimazole 1% CREAM 30 gm TOPICAL SCH ×2 (09:04→21:41)
[2023-03-09] MEDS ORDERED: Morphine 2 MG/ML SYRINGE IV PRN (11:19)
[2023-03-09] MEDS: Cefepime 1 GM in Dextrose 1 GM/50 ML BAG IV SCH ×2 (11:28→20:29)
[2023-03-09] MEDS: Enoxaparin 40 MG/0.4 ML SYR SUBCUT SCH (13:34)
[2023-03-10] MEDS: Sulfamethox/Trimethoprim DS TAB 800/160 mg PO SCH ×3 (05:37→23:43)
[2023-03-10] MEDS: Anidulafungin 100 MG in NS 0.9% 100 ml BAG 100 ML IVPB SCH (09:42)
[2023-03-10] MEDS: Vitamin THERAPEUTIC TAB PO SCH (09:42)
[2023-03-10 10:12] LABS: Hematocrit 31.5 % (38-53); Hemoglobin 10.7 g/dL (13.2-16.3); Mean Corpuscular Hemoglobin 34.1 pg (27-33); Mean Corpuscular Hgb Conc 33.8 g/dL (31-36); Mean Platelet Volume 8.2 fL (7.5-11.2); Platelet Count 172 10^3/uL (150-450); Red Blood Count 3.12 10^6/uL (4.06-5.63); Red Cell Distribution Width 19.9 % (12-17); White Blood Count 11.5 10^3/uL (3.6-10.2)
[2023-03-10 10:38] LABS: ABS Eosinophils 0.1 10^3/uL (0.0-0.5); ABS Lymphocytes 0.7 10^3/uL (1.0-4.8); ABS Monocytes 0.6 10^3/uL (0.0-1.1); ABS Neutrophils 10.1 10^3/uL (1.5-7.6); ABS Nucleated RBC 0.03 10^3/ul; Anisocytosis 2+; Eosinophil % 0.7 %; Lymphocyte % 6.2 %; Macrocytosis 1+; Nucleated Red Blood Cells % 0.3 %/100WBC (0.0-0.8); Polychromasia 1+
[2023-03-10] MEDS: Clotrimazole 1% CREAM 30 gm TOPICAL SCH (10:51)
[2023-03-10 11:04] LABS: Creatinine, Serum 1.08 mg/dL (0.67-1.17); Potassium 4.5 mmol/L (3.5-5.0); eGFR CKD-EPI 71.6 (>60)
[2023-03-10] MEDS ORDERED: .Amiodarone 24HR ONLY IV Protocol Order Note IV ONE (11:49)
[2023-03-10] MEDS ORDERED: Amiodarone 150 mg IVPREMIX 150 MG/100 ML BAG IV ONE (11:49)
[2023-03-10] MEDS ORDERED: Amiodarone 360 MG IVPREMIX 360 MG/200 ML BAG IV SCH (12:00)
[2023-03-10] MEDS ORDERED: PHENYLEPHRINE DRIP IVPREMIX 50 MG/250 ML BAG IV SCH (14:00)
[2023-03-10] MEDS: Enoxaparin 40 MG/0.4 ML SYR SUBCUT SCH (16:48)
[2023-03-10] MEDS: Amiodarone 360 MG IVPREMIX 360 MG/200 ML BAG IV SCH (16:49)
[2023-03-11] MEDS: Sulfamethox/Trimethoprim DS TAB 800/160 mg PO SCH ×3 (06:21→21:34)
[2023-03-11 06:40] LABS: Hematocrit 30.6 % (38-53); Hemoglobin 10.4 g/dL (13.2-16.3); Mean Corpuscular Hemoglobin 34.2 pg (27-33); Mean Corpuscular Hgb Conc 34.1 g/dL (31-36); Mean Corpuscular Volume 100.5 fL (80-97); Mean Platelet Volume 8.4 fL (7.5-11.2); Platelet Count 158 10^3/uL (150-450); Red Blood Count 3.05 10^6/uL (4.06-5.63); Red Cell Distribution Width 19.9 % (12-17); White Blood Count 8.4 10^3/uL (3.6-10.2)
[2023-03-11 06:56] LABS: Calcium 8.4 mg/dL (8.6-10.3); Creatinine, Serum 0.96 mg/dL (0.67-1.17); Magnesium 2.1 mg/dL (1.9-2.7); Potassium 4.5 mmol/L (3.5-5.0); eGFR CKD-EPI 82.4 (>60)
[2023-03-11 06:59] LABS: ABS Eosinophils 0.1 10^3/uL (0.0-0.5); ABS Lymphocytes 0.6 10^3/uL (1.0-4.8); ABS Monocytes 0.4 10^3/uL (0.0-1.1); ABS Neutrophils 7.4 10^3/uL (1.5-7.6); ABS Nucleated RBC 0.04 10^3/ul; Anisocytosis 1+; Eosinophil % 1.5 %; Lymphocyte % 6.5 %; Macrocytosis 1+; Nucleated Red Blood Cells % 0.4 %/100WBC (0.0-0.8)
[2023-03-11] MEDS: Vitamin THERAPEUTIC TAB PO SCH (12:24)
[2023-03-11] MEDS: Metoprolol Tartrate 5 mg VIAL 5 ml VIAL (1 mg/ml) IV PRN (12:53)
[2023-03-11] MEDS ORDERED: Anidulafungin 100 MG in NS 0.9% 100 ml BAG 100 ML IVPB SCH (13:00)
[2023-03-11] MEDS: Morphine 2 MG/ML SYRINGE IV PRN (13:11)
[2023-03-11] MEDS: Enoxaparin 40 MG/0.4 ML SYR SUBCUT SCH (15:36)
[2023-03-11] MEDS: Amiodarone 360 MG IVPREMIX 360 MG/200 ML BAG IV SCH (16:05)
[2023-03-12 05:19] LABS: Hematocrit 30.7 % (38-53); Hemoglobin 10.6 g/dL (13.2-16.3); Mean Corpuscular Hemoglobin 34.6 pg (27-33); Mean Corpuscular Hgb Conc 34.5 g/dL (31-36); Mean Corpuscular Volume 100.3 fL (80-97); Mean Platelet Volume 8.2 fL (7.5-11.2); Platelet Count 138 10^3/uL (150-450); Red Blood Count 3.06 10^6/uL (4.06-5.63); Red Cell Distribution Width 19.5 % (12-17); White Blood Count 6.2 10^3/uL (3.6-10.2)
[2023-03-12] MEDS: Sulfamethox/Trimethoprim DS TAB 800/160 mg PO SCH (05:32)
[2023-03-12 05:35] LABS: Calcium 8.5 mg/dL (8.6-10.3); Creatinine, Serum 0.95 mg/dL (0.67-1.17); Magnesium 2.1 mg/dL (1.9-2.7); Potassium 4.5 mmol/L (3.5-5.0); eGFR CKD-EPI 83.5 (>60)
[2023-03-12 05:52] LABS: Digoxin 1.1 ng/ml (0.8-2.0)
[2023-03-12 06:04] LABS: ABS Basophils 0.1 10^3/uL (0.0-0.1); ABS Eosinophils 0.1 10^3/uL (0.0-0.5); ABS Lymphocytes 0.5 10^3/uL (1.0-4.8); ABS Monocytes 0.4 10^3/uL (0.0-1.1); ABS Neutrophils 5.1 10^3/uL (1.5-7.6); ABS Nucleated RBC 0.02 10^3/ul; Anisocytosis 3+; Eosinophil % 1.4 %; Lymphocyte % 8.4 %; Nucleated Red Blood Cells % 0.4 %/100WBC (0.0-0.8); Polychromasia 2+
[2023-03-12] MEDS: Vitamin THERAPEUTIC TAB PO SCH (08:20)
[2023-03-12 12:43] VITALS: BP 100/58
[2023-03-12] MEDS: Morphine 2 MG/ML SYRINGE IV PRN ×2 (18:12→22:15)
[2023-03-13] MEDS: Morphine 2 MG/ML SYRINGE IV PRN ×2 (02:24→07:15)
[2023-03-13] MEDS: Metoprolol Tartrate 5 mg VIAL 5 ml VIAL (1 mg/ml) IV PRN (04:00)
[2023-03-13] MEDS: VORICONAZOLE 50 MG PO SCH ×2 (11:25→19:41)
[2023-03-14] MEDS: VORICONAZOLE 50 MG PO SCH (08:26)
== END 2023-03-14 09:22 | disposition hospice, home (50) | DRG 193 ==
LOC: ED 04:18 → EDHOLD 05:33 → SUATTDRO 05:33 → ICU 07:18
PROVIDERS: ADMIT Hospitalist; ATTEND Surgery Surgical Critical Care